=== PATIENT | female | born 1955 | race Hispanic/Latino ===

== ENCOUNTER 2018-08-21 15:59 | Inpatient (IN) | payer MEDICAID ==
[2018-08-21] MEDS ORDERED: ACTIVASE ONE (16:21)
--- NOTE | 2018-08-21 16:24 | Cat Scan Report ---
PROCEDURE: CT HEAD/BRAIN WO CON TECHNIQUE: Computerized tomography of the head was performed without contrast material. HISTORY: neuro deficits <6hrs or sx present upon awakening COMPARISONS: None . FINDINGS: No CT evidence of intracranial mass, hemorrhage, or hydrocephalus. There is patchy white matter low a ttenuation, compatible with chronic microvascular ischemic change. There is focal left internal capsu le subcentimeter low attenuation which is of uncertain chronicity. No acute fracture. Visualized para nasal sinuses and mastoids are aerated. IMPRESSION: Focal left internal capsule low-attenuation is compatible with age-indeterminate ischemia. This could be subacute to chronic. Findings could be evaluated with MRI if clinically indicated. No acute hemor rhage . This document is electronically signed by Liz Ordoñez MD., August 21 2018 04:22:52 PM ET
[2018-08-21 16:28] LABS: Basophils % (Auto) 0.5 % (0.0-1.8); Eosinophils # (Auto) 0.1 K/mm3 (0.0-0.4); Eosinophils % (Auto) 2.1 % (0.0-4.3); Hematocrit 30.4 % (30.3-42.9); Hemoglobin 10.1 gm/dl (10.1-14.3); Lymphocytes # (Auto) 3.1 K/mm3 (1.2-5.4); Lymphocytes % (Auto) 44.2 % (13.4-35.0); Mean Corpuscular HGB Conc 33 % (30-34); Mean Corpuscular Volume 85 fl (79-97); Monocytes # (Auto) 0.5 K/mm3 (0.0-0.8); Monocytes % (Auto) 7.3 % (0.0-7.3); Platelet Count 172 K/mm3 (140-440); Red Blood Count 3.56 M/mm3 (3.65-5.03); Red Cell Distribution Width 16.1 % (13.2-15.2)
[2018-08-21] MEDS ORDERED: NORMODYNE IV ONE (16:32)
[2018-08-21 16:39] LABS: INR 1.09 (0.87-1.13); Partial Thromboplastin Time 27.6 Sec. (24.2-36.6)
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
--- NOTE | 2018-08-21 16:42 | Consultation ---
History of Present Illness Consult date: 08/21/18 Reason for Consult: stroke alert Chief complaint: chest pain radiating down left arm and leg, sharp, stabbing, radiating through to back as well, associated with numbness down left side as well History of present illness: 63 yo female with h/o CAD and past admissions for chest pain reports that "somewhere around 2 hours ago" she had sudden chest pain to the left side that radiated all the way down her left arm and left leg- she can't move her leg and her arm hurts; she feels it goes straight through to her back as well; has had chest pain before but not like this; feels her speech is a bit slurred but also notes she has no teeth; looking in EMR- had a prolonged PT a few years ago; aspirin allergy is "throws up" but admits she tolerates baby dose 81mg okay w/o h/o anaphylaxis; BP now is 198, 199- systolic checked in both arms Medications and Allergies Allergies Allergy/AdvReac Type Severity Reaction Status Date / Time aspirin Allergy Rash Verified 10/25/14 14:28 ketorolac tromethamine Allergy Rash Verified 10/25/14 14:28 [From Toradol] morphine Allergy Rash Verified 10/25/14 14:28 Home Medications Medication Instructions Recorded Confirmed Last Taken Type HYDROcodone/APAP 5-325 [[place] 1 each PO Q6HR PRN #12 tablet 10/26/14 Unknown Rx 5/325] Physical Examination - Constitutional General appearance: uncomfortable - Neurologic Cranial nerve examination: other (NIHSS = 4 1A: Level of Consciousness - Alert; keenly responsive) - Additional Exam Additional Exam: 1A: Level of Consciousness - Alert; keenly responsive 1B: Ask Month and Age - Both Questions Right 1C: 'Blink Eyes' & 'Squeeze Hands' - Performs Both Tasks 2: Test Horizontal Extraocular Movements - Normal 3: Test Visual [place] - No Visual Loss 4: Test Facial Palsy - Normal symmetry 5A: Test Left Arm Motor Drift - Drift, but doesn't hit bed 5B: Test Right Arm Motor Drift - No Drift for 10 Seconds 6A: Test Left Leg Motor Drift - Drift, hits bed 6B: Test Right Leg Motor Drift - No Drift for 5 Seconds 7: Test Limb Ataxia - No Ataxia 8: Test Sensation - Mild-Moderate Loss: Less Sharp/More Dull 9: Test Language/Aphasia - Normal; No aphasia 10: Test Dysarthria - Normal 11: Test Extinction/Inattention - No abnormality NIHSS = 4 of note she moves her left arm very well, strong with good finger extension noted while nurse was placing IV in right AC, she is talking with mild slurring but appears more due to being edentulous; She is also noted to move her left leg spontaneously but then when asked does not give much effort to move it Not a tPA candidate at this time due to BP and need for coags; also need to r/o aortic dissection given constellation of sx; going for CTA chest; CT head pending; uanble to get CTA chest AND head/neck here per ED doc; does not look like LVO to me clinically UPDATE: CTA chest negative update on exam- left arm is full strength, has been seen moving left leg as well but not moving much when asked (is moving some); states that her chest pain is really bothering her, trop elevated- at this time I do not feel comfortable nor do I think she is a good candidate for tPA; she was not clear at all on when her symptoms started and could not give me a definite time, her exam has fluctuated and I observed her to fully move left arm spontaneously while talking in conversation and right arm was being used for labs as well as spontaneously move left leg; I do not feel the risks of giving her tPA outweigh the benefit and I discussed this in detail with ED physician Dr. Oh who agrees. I would recommend neurology consult inpatient and consideration of MRI given she does have hypodensity in LEFT hemisphere on CT scan that is of indeterminate age and she has many RF for stroke. d/w patient in detail. Metrics: LKN (unclear- patient reports sometime this morning and cannot give me a good time- she told ED doc around 1 hour ago and told me around "somewhere around 2 hours or so") Door:[id number] connected: 1603 [id number] Please call with further questions Aurora El MD [employer] Results - Laboratory Findings CBC and BMP: 08/21/18 16:23 08/21/18 16:23 Abnormal Lab Findings: Abnormal Labs 08/21/18 16:23 RBC 3.56 L RDW 16.1 H Lymph % (Auto) 44.2 H
[2018-08-21] MEDS ORDERED: MORPHINE IV ONE (16:46)
[2018-08-21] MEDS ORDERED: ZOFRAN IV ONE (16:46)
[2018-08-21] MEDS ORDERED: MORPHINE ONE (16:49)
[2018-08-21] MEDS ORDERED: ZOFRAN ONE (16:50)
[2018-08-21 17:01] LABS: Calcium 8.7 mg/dL (8.4-10.2)
[2018-08-21 17:23] LABS: Chol/HDL Ratio 4.46 %
--- NOTE | 2018-08-21 17:34 | Cat Scan Report ---
PROCEDURE: CT angiogram chest with contrast. TECHNIQUE: Computerized tomographic angiography of the chest was performed after the IV injection of iodinated nonionic contrast including image processing. The image data was postprocessed using 2-di mensional multiplanar reformatted (MPR) and 3-dimensional (MIP and/or volume rendered) techniques. Au tomated exposure control, adjustment of mA and/or kV according to patient size, or iterative reconstr uction dose optimization techniques were utilized. CT DOSE LENGTH PRODUCT: 605.67 mGycm HISTORY: Chest pain. COMPARISONS: CT angiogram chest 12/12/2013. Dictation not available. FINDINGS: The trachea and central bronchi appear normal. There is minimal subsegmental atelectasis in both lowe r lobes. The lungs are otherwise clear. There are no signs of pneumonia. The thoracic aorta has a nor mal caliber without evidence of dissection. The pulmonary arteries enhance normally. There is no evid ence of pulmonary embolism. There is no mediastinal adenopathy. The heart size is normal. The thoraci c skeleton appears intact. Median sternotomy wires are present. There is an internal fixation malika in the left humerus. IMPRESSION: No significant abnormality identified. This document is electronically signed by Jarod Dewitt MD., August 21 2018 05:32:10 PM ET
[2018-08-21] MEDS ORDERED: NITROSTAT SL PRN (18:17)
[2018-08-21] MEDS ORDERED: BABY ASPIRIN PO ONE (18:30)
--- NOTE | 2018-08-21 18:39 | History and Physical Report ---
History of Present Illness Chief complaint: My chest hurts, and I felt weak History of present illness: 63 YO Female with HTN, CAD, CVA, PR, DM complicated by Neuropathy, CHF, Seizure Disorder presents to ED for evaluation. Pt states that she was in her usual state of health and was driving her car when she experienced and acute onset of pain in her chest. Pt sates that pain was 7/10, localized to the left chest, sh enrrique, crushing in nature, radiates to the back, associated with shortness of breath and diaphoresis. Pt stopped her vehicle and dialed 911 on her mobile phone. EMS notified, and uopn arrival the patient was removed from her vehicle and found to be in distress. Pt transported to [facility]. En route to [facility] the patient developed slurred speech, left arm weakness, left leg weakness. A code stroke was called. Pt seen and evaluated in ED and found to have synptoms consistent with CVA as well as NSTEMI, Acute Renal Failure, Acidosis, and Hypertensive Urgency. Pt admitted to telemetry and initiated on heparin drip protocol after CT head was negative for ICH. Pt admission on 10/22/14 reviewed. All listed me dication reconciled at time of admission. Past History Past Medical History: acute PR, CAD, diabetes, heart failure, hypertension, seizures Past Surgical History: appendectomy, cholecystectomy, CABG, hysterectomy, hernia repair Social history: single. denies: smoking, alcohol abuse, prescription drug abuse Family history: diabetes, hypertension Medications and Allergies Allergies Allergy/AdvReac Type Severity Reaction Status Date / Time aspirin Allergy Rash Verified 10/25/14 14:28 ketorolac tromethamine Allergy Rash Verified 10/25/14 14:28 [From Toradol] morphine Allergy Rash Verified 10/25/14 14:28 Home Medications Medication Instructions Recorded Confirmed Last Taken Type HYDROcodone/APAP 5-325 [[place] 1 each PO Q6HR PRN #12 tablet 10/26/14 Unknown Rx 5/325] Active Meds: Active Medications Nitroglycerin (Nitrostat) 0.4 mg SL .Q5MIN PRN PRN Reason: Chest Pain Review of Systems Constitutional: no weight loss, no fever, no chills Ears, nose, mouth and throat: no ear pain, no ear discharge, no tinnitis, no decreased hearing, no nose pain, no nasal congestion Breasts: no change in shape, no swelling, no mass Cardiovascular: chest pain, shortness of breath Respiratory: no cough, no cough with sputum, no excessive sputum, no hemoptysis Gastrointestinal: no nausea, no vomiting, no diarrhea Genitourinary Female: no pelvic pain, no flank pain, no menorrhagia, no dysuria, no urinary frequency, no urgency Rectal: no pain, no incontinence, no bleeding Integumentary: no rash, no pruritis, no redness, no sores, no wounds Neurological: no paralysis, no weakness, no parathesias, no numbness, no tingling, no seizures Psychiatric: no anxiety, no memory loss, no change in sleep habits, no sleep disturbances, no insomnia, no hypersomnia Endocrine: no cold intolerance, no heat intolerance, no polyphagia, no excessive thirst, no polydipsia, no nocturia Hematologic/Lymphatic: no easy bruising, no easy bleeding, no lymphadenopathy Allergic/Immunologic: no urticaria, no allergic rhinitis, no wheezing, no persistent infections, no anaphylaxis, no angioedema Exam - Constitutional Vitals: Temp Pulse Resp BP Pulse Ox 82 16 195/94 99 08/21/18 16:59 08/21/18 16:59 08/21/18 16:59 08/21/18 16:59 General appearance: Present: mild distress - EENT Eyes: Present: PERRL ENT: hearing intact, clear oral mucosa - Neck Neck: Present: supple, normal ROM - Respiratory Respiratory effort: normal Respiratory: bilateral: CTA - Cardiovascular Heart Sounds: Present: S1 & S2. Absent: rub, click - Extremities Extremities: pulses symmetrical, No edema Peripheral Pulses: within normal limits - Abdominal General gastrointestinal: Present: soft, non-tender, non-distended, normal bowel sounds Female genitourinary: Present: normal - Integumentary Integumentary: Present: clear, warm, dry - Musculoskeletal Musculoskeletal: generalized weakness - Psychiatric Psychiatric: appropriate mood/affect, intact judgment & insight - Neurologic Neurologic: CNII-XII intact, moves all extremities, no gait normal Results - Labs CBC & Chem 7: 08/21/18 16:23 08/21/18 16:23 Labs: Abnormal lab results 08/21/18 08/21/18 Range/Units 16:23 16:23 RBC 3.56 L (3.65-5.03) M/mm3 RDW 16.1 H (13.2-15.2) % Lymph % (Auto) 44.2 H (13.4-35.0) % Chloride 108.1 H (98-107) mmol/L Carbon Dioxide 18 L (22-30) mmol/L BUN 39 H (7-17) mg/dL Creatinine 2.4 H (0.7-1.2) mg/dL Glucose 221 H (65-100) mg/dL Troponin T 0.034 H (0.00-0.029) ng/mL Triglycerides 258 H (2-149) mg/dL Assessment and Plan - Patient Problems (1) CVA (cerebral vascular accident) Current Visit: Yes Status: Acute Qualifiers: Precerebral and cerebral artery: middle cerebral artery Laterality of affected vessel: left Plan to address problem: Admit to telemetry: Stroke protocol; Teleneurology consulted, CT head, MRI Brain, MRA Brain, Echo, Carotid doppler, Lipid panel, antiplatelet therapy, permissive hypertension overnight. Goal systolic between 160-180, monitor bp q shift, PT/OT/Speech Therapy, Neuro checks (2) NSTEMI (non-ST elevated myocardial infarction) Current Visit: Yes Status: Acute Plan to address problem: Cardiology consulted in ED, serial cardiac enzymes, EKg, heparin drip initiated in ED, morphine, supplemental oxygen, nitro, aspirin, stress test, (3) Acidosis Current Visit: Yes Status: Acute Plan to address problem: repeat bmp, IVF resuscitation therapy as tolerated, (4) ARF (acute renal failure) with tubular necrosis Current Visit: Yes Status: Acute Plan to address problem: Nephrology consulted, IVF resuscitation, hepatitis profile, renal ultrasound, urine electrolytes, monitor uop q shift, avoid nephrotoxic agents. (5) Diabetes Current Visit: Yes Status: Acute Plan to address problem: ADA diet, insulin, accu check, HGB A1c, (6) Seizure disorder Current Visit: Yes Status: Acute Plan to address problem: No medication listed, Seizure precautions, neuro checks. (7) CAD (coronary artery disease) Current Visit: Yes Status: Acute Qualifiers: [place] vs. transplanted heart: [place] heart Associated angina: with stable angina Plan to address problem: Lipid panel, statin therapy, low cholesterol diet, risk factor reduction, balanced diet, increased physical activity at discharge. (8) CHF (congestive heart failure) Current Visit: Yes Status: Acute Qualifiers: Heart failure type: diastolic Heart failure chronicity: acute on chronic Qualified Code(s): I50.33 - Acute on chronic diastolic (congestive) heart failure Plan to address problem: Admit to telemetry, cardiology consulted, BNP, Ddimer, chest x ray, strict I/O, daily weight, afterload reduction, blood pressure control, monitor uop q shift, (9) Hypertensive emergency Current Visit: Yes Status: Acute Plan to address problem: monitor bp q shift, IV hydralazine prn, (10) DVT prophylaxis Current Visit: Yes Status: Acute Plan to address problem: SCD to BLE while in bed,
[2018-08-21] MEDS ORDERED: SODIUM CHLORIDE FLUSH SYRINGE 10 ML IV PRN ×2 (18:42→18:49)
[2018-08-21] MEDS ORDERED: TYLENOL PO PRN (18:42)
[2018-08-21] MEDS ORDERED: ZOFRAN IV PRN (18:42)
[2018-08-21] MEDS ORDERED: REGLAN PO PRN (18:42)
[2018-08-21] MEDS ORDERED: PHENERGAN PR PRN (18:42)
[2018-08-21] MEDS ORDERED: DULCOLAX PR PRN (18:42)
[2018-08-21] MEDS ORDERED: MILK OF MAGNESIA PO PRN (18:42)
[2018-08-21] MEDS ORDERED: APRESOLINE IV PRN (18:54)
[2018-08-21] MEDS ORDERED: D50W (25GM) Syringe IV PRN (18:58)
[2018-08-21] MEDS ORDERED: DILAUDID ONE (20:02)
[2018-08-21] MEDS: DILAUDID IV PRN (20:03)
[2018-08-21 20:51] LABS: Hepatitis B Surface Antigen Non-Reactive (Negative); Hepatitis C Virus Antibody Reactive (NonReactive)
[2018-08-21 22:02] LABS: INR 1.1 (0.87-1.13)
[2018-08-21] MEDS: HEPARIN/ 0.45% NACL-25,000 UNIT/500 ML 25,000 UNIT/500 ML BAG IV SCH (22:02)
[2018-08-21 22:03] LABS: Partial Thromboplastin Time 27.3 Sec. (24.2-36.6)
[2018-08-21] MEDS: NORCO 5/325 PO PRN (22:09)
[2018-08-21 23:33] LABS: Hematocrit 30.8 % (30.3-42.9); Hemoglobin 10.2 gm/dl (10.1-14.3)
[2018-08-21] MEDS: AMBIEN PO PRN (23:43)
[2018-08-21] MEDS: MUCOMYST ORAL PO SCH (23:43)
[2018-08-22 00:18] LABS: Creatinine,Urine 46.5 mg/dL (0.1-20.0)
--- NOTE | 2018-08-22 09:41 | Progress Note ---
Assessment and Plan Assessment and plan: Acute CVA with left-sided weakness. CT scan reveals focal left internal capsule with age indeterminate ischemia.? Subacute versus chronic. Follow-up MRI/MRA, echocardiogram and carotid Dopplers. Patient with previous history of CVA. Chest pain. Patient does have elevated troponin and history of coronary artery disease. Continue heparin drip. Cardiology consult. Follow-up stress test. CAD. As above. History of CABG done at [facility] in 2014. Stress test in 2015 completed here reported as normal Diabetes mellitus type 2. Continue Accu-Cheks and sliding scale insulin. Hypertension. Continue current antihypertensive medications. Seizure disorder. Seizure precautions. AEDs. History Interval history: No new issues overnight. Hospitalist Physical - Constitutional Vitals: Temp Pulse Resp BP Pulse Ox 98.0 F 75 18 140/52 98 08/22/18 04:46 08/22/18 05:00 08/22/18 04:46 08/22/18 04:46 08/22/18 04:46 General appearance: Present: mild distress - EENT Eyes: Present: PERRL, EOM intact ENT: hearing intact, clear oral mucosa, dentition normal - Neck Neck: Present: supple, normal ROM - Respiratory Respiratory effort: normal Respiratory: bilateral: CTA - Cardiovascular Rhythm: regular Heart Sounds: Present: S1 & S2. Absent: gallop, rub - Extremities Extremities: no ischemia, No edema, Full ROM - Abdominal General gastrointestinal: soft, non-tender, non-distended, normal bowel sounds - Integumentary Integumentary: Present: clear, warm, dry - Neurologic Neurologic: CNII-XII intact, moves all extremities Results - Labs CBC & Chem 7: 08/21/18 22:35 08/21/18 16:23 Labs: Laboratory Last Values WBC 7.0 K/mm3 (4.5-11.0) 08/21/18 16:23 RBC 3.56 M/mm3 (3.65-5.03) L 08/21/18 16:23 Hgb 10.2 gm/dl (10.1-14.3) 08/21/18 22:35 Hct 30.8 % (30.3-42.9) 08/21/18 22:35 MCV 85 fl (79-97) 08/21/18 16:23 MCH 28 pg (28-32) 08/21/18 16:23 MCHC 33 % (30-34) 08/21/18 16:23 RDW 16.1 % (13.2-15.2) H 08/21/18 16:23 Plt Count 167 K/mm3 (140-440) 08/21/18 22:35 Lymph % (Auto) 44.2 % (13.4-35.0) H 08/21/18 16:23 [place] % (Auto) 7.3 % (0.0-7.3) 08/21/18 16:23 Eos % (Auto) 2.1 % (0.0-4.3) 08/21/18 16:23 Baso % (Auto) 0.5 % (0.0-1.8) 08/21/18 16:23 Lymph # 3.1 K/mm3 (1.2-5.4) 08/21/18 16:23 [place] # 0.5 K/mm3 (0.0-0.8) 08/21/18 16:23 Eos # 0.1 K/mm3 (0.0-0.4) 08/21/18 16:23 Baso # 0.0 K/mm3 (0.0-0.1) 08/21/18 16:23 Seg Neutrophils % 45.9 % (40.0-70.0) 08/21/18 16: Seg Neutrophils # 3.2 K/mm3 (1.8-7.7) 08/21/18 16:23 PT 14.9 Sec. (12.2-14.9) 08/21/18 21:20 INR 1.10 (0.87-1.13) 08/21/18 21:20 APTT 27.3 Sec. (24.2-36.6) 08/21/18 21:20 Thrombin Time 18.0 Sec. (15.1-19.6) 08/21/18 16:23 D-Dimer 327.52 ng/mlDDU (0-234) H 08/21/18 16:23 Heparin Anti-Xa Level 0.45 U.I./ml (0.3-0.7) 08/22/18 04:30 Sodium 138 mmol/L (137-145) 08/21/18 16:23 Potassium 4.7 mmol/L (3.6-5.0) 08/21/18 16:23 Chloride 108.1 mmol/L (98-107) H 08/21/18 16:23 Carbon Dioxide 18 mmol/L (22-30) L 08/21/18 16:23 Anion Gap 17 mmol/L 08/21/18 16:23 BUN 39 mg/dL (7-17) H 08/21/18 16:23 Creatinine 2.4 mg/dL (0.7-1.2) H 08/21/18 16:23 Estimated GFR 21 ml/min 08/21/18 16:23 BUN/Creatinine Ratio 16 % 08/21/18 16:23 Glucose 221 mg/dL (65-100) H 08/21/18 16:23 POC Glucose 264 (70-105) H 08/22/18 06:16 Hemoglobin A1c 9.3 % (4-6) H 08/21/18 16:23 Calcium 8.7 mg/dL (8.4-10.2) 08/21/18 16:23 Troponin T 0.026 ng/mL (0.00-0.029) 08/22/18 01:01 NT-Pro-B Natriuret Pep 384.5 pg/mL (0-900) 08/21/18 16:23 Triglycerides 258 mg/dL (2-149) H 08/21/18 16:23 Cholesterol 192 mg/dL (50-199) 08/21/18 16:23 LDL Cholesterol Direct 121 mg/dL (50-130) 08/21/18 16:23 HDL Cholesterol 43 mg/dL (40-59) 08/21/18 16:23 Cholesterol/HDL Ratio 4.46 % 08/21/18 16:23 Urine Creatinine 46.5 mg/dL (0.1-20.0) H 08/21/18 00:00 Urine Sodium 47 mmol/L 08/21/18 00:00 Hepatitis A IgM Ab Non-reactive (NonReactive) 08/21/18 16:23 Hep Bs Antigen Non-reactive (Negative) 08/21/18 16:23 Hep B Core IgM Ab Non-reactive (NonReactive) 08/21/18 16:23 Hepatitis C Antibody Reactive (NonReactive) A 08/21/18 16:23 Active Medications - Current Medications Current Medications: Generic Name Dose Route Start Last Admin Trade Name Freq PRN Reason Stop Dose Admin Acetaminophen 650 mg 08/21/18 18:42 Tylenol PO Q4H PRN Pain, Mild (1-3) Acetaminophen/Hydrocodone Bitart 1 each 08/21/18 18:44 08/21/18 22:09 [place] 5/325 PO 1 each Q6H PRN Administration Pain Acetylcysteine 600 mg 08/21/18 22:00 08/21/18 23:43 Mucomyst Oral PO 600 mg BID JESSICA Administration Aspirin 325 mg 08/22/18 10:00 Aspirin PO QDAY JESSICA Atorvastatin Calcium 40 mg 08/21/18 22:00 08/21/18 22:02 Lipitor PO 40 mg QHS [facility] Administration Bisacodyl 10 mg 08/21/18 18:42 Dulcolax [place] QDAY PRN Constipation Dextrose 50 ml 08/21/18 18:58 D50w (25gm) Syringe IV PRN PRN Hypoglycemia Hydralazine HCl 10 mg 08/21/18 18:54 Apresoline IV Q6H PRN Hypertension Hydromorphone HCl 0.5 mg 08/21/18 19:41 08/21/18 20:03 Dilaudid IV 0.5 mg ONCE PRN Administration pain Heparin Sodium/Sodium Chloride 25,000 unit in 500 mls @ 20 mls/hr 08/21/18 21:00 08/22/18 06:39 Heparin/ 0.45% Nacl-25,000 Unit/500 Ml IV 1,000 units/hr TITRATE JESSICA 20 mls/hr Titration Protocol 1,000 UNITS/HR Insulin Human Lispro 0 unit 08/22/18 19:00 Humalog SUB-Q Q6HR [facility] Protocol Magnesium Hydroxide 30 ml 08/21/18 18:42 Milk Of Magnesia PO Q4H PRN Constipation Metoclopramide HCl 10 mg 08/21/18 18:42 Reglan PO Q6H PRN Nausea And Vomiting Nitroglycerin 0.4 mg 08/21/18 18:17 08/21/18 18:40 Nitrostat SL 0.4 mg .Q5MIN PRN Administration Chest Pain Ondansetron HCl 4 mg 08/21/18 18:42 Zofran IV Q8H PRN Nausea And Vomiting Promethazine HCl 25 mg 08/21/18 18:42 Phenergan [place] Q6H PRN Nausea And Vomiting Sodium Chloride 10 ml 08/21/18 18:42 Sodium Chloride Flush Syringe 10 Ml IV PRN PRN LINE FLUSH Sodium Chloride 10 ml 08/21/18 18:49 Sodium Chloride Flush Syringe 10 Ml IV PRN PRN LINE FLUSH Zolpidem Tartrate 5 mg 08/21/18 21:22 08/21/18 23:43 Ambien PO 5 mg QHS PRN Administration Sleep
[2018-08-22] MEDS: ASPIRIN PO SCH ×2 (09:44→11:26)
[2018-08-22] MEDS: MUCOMYST ORAL PO SCH ×2 (10:11→21:29)
--- NOTE | 2018-08-22 10:40 | Consultation ---
History of Present Illness - Reason for Consult Consult date: 08/22/18 acute renal failure - History of Present Illness The patient is a 63 yo female with history signficant for Type 2 DM, HTN, HLD, CAD s/p CABG, TIA, Peripheral neuropathy, Gout, CKD and CHF who presented to [facility] ED yesterday via EMS with chest pain. Chest pain was left sided, stabbing, cosntant, sharp and radiating to back. Associated symptoms include shortness of breath. about 5 minutes later she developed slurred speech and left arm/leg weakness. Patient was admitted with TIA and suspected ACS. Creatinine was 2.4 on admission. Received IV contrast yesterday. Nephrology was consulted for further evaluation. Past History Past Medical History: acute CT, CAD, diabetes, heart failure, hypertension, hyperlipidemia, renal failure, seizures, other (Gout) Past Surgical History: appendectomy, cholecystectomy, CABG, hysterectomy, hernia repair Social history: single. denies: smoking, alcohol abuse, prescription drug abuse Family history: diabetes, hypertension Medications and Allergies Allergies Allergy/AdvReac Type Severity Reaction Status Date / Time aspirin Allergy Rash Verified 10/25/14 14:28 ketorolac tromethamine Allergy Rash Verified 10/25/14 14:28 [From Toradol] morphine Allergy Rash Verified 10/25/14 14:28 Home Medications Medication Instructions Recorded Confirmed Last Taken Type HYDROcodone/APAP 5-325 [[place] 1 each PO Q6HR PRN #12 tablet 10/26/14 Unknown Rx 5/325] Active Meds: Active Medications Acetaminophen (Tylenol) 650 mg PO Q4H PRN PRN Reason: Pain, Mild (1-3) Acetaminophen/Hydrocodone Bitart ([place] 5/325) 1 each PO Q6H PRN PRN Reason: Pain Last Admin: 08/21/18 22:09 Dose: 1 each Documented by: Acetylcysteine (Mucomyst Oral) 600 mg PO BID [facility] Last Admin: 08/22/18 10:11 Dose: 600 mg Documented by: Aspirin (Aspirin) 325 mg PO QDAY [facility] Last Admin: 08/22/18 09:44 Dose: 325 mg Documented by: Atorvastatin Calcium (Lipitor) 40 mg PO QHS [facility] Last Admin: 08/21/18 22:02 Dose: 40 mg Documented by: Bisacodyl (Dulcolax) 10 mg ND QDAY PRN PRN Reason: Constipation Dextrose (D50w (25gm) Syringe) 50 ml IV PRN PRN PRN Reason: Hypoglycemia Hydralazine HCl (Apresoline) 10 mg IV Q6H PRN PRN Reason: Hypertension Hydromorphone HCl (Dilaudid) 0.5 mg IV ONCE PRN PRN Reason: pain Last Admin: 08/21/18 20:03 Dose: 0.5 mg Documented by: Heparin Sodium/Sodium Chloride (Heparin/ 0.45% Nacl-25,000 Unit/500 Ml) 25,000 unit in 500 mls @ 20 mls/hr IV TITRATE JESSICA; Protocol Last Titration: 08/22/18 06:39 Dose: 1,000 units/hr, 20 mls/hr Documented by: Insulin Human Lispro (Humalog) 0 unit SUB-Q Q6HR [facility]; Protocol Magnesium Hydroxide (Milk Of Magnesia) 30 ml PO Q4H PRN PRN Reason: Constipation Metoclopramide HCl (Reglan) 10 mg PO Q6H PRN PRN Reason: Nausea And Vomiting Nitroglycerin (Nitrostat) 0.4 mg SL .Q5MIN PRN PRN Reason: Chest Pain Last Admin: 08/21/18 18:40 Dose: 0.4 mg Documented by: Ondansetron HCl (Zofran) 4 mg IV Q8H PRN PRN Reason: Nausea And Vomiting Promethazine HCl (Phenergan) 25 mg ND Q6H PRN PRN Reason: Nausea And Vomiting Sodium Chloride (Sodium Chloride Flush Syringe 10 Ml) 10 ml IV PRN PRN PRN Reason: LINE FLUSH Sodium Chloride (Sodium Chloride Flush Syringe 10 Ml) 10 ml IV PRN PRN PRN Reason: LINE FLUSH Zolpidem Tartrate (Ambien) 5 mg PO QHS PRN PRN Reason: Sleep Last Admin: 08/21/18 23:43 Dose: 5 mg Documented by: Review of Systems Constitutional: no weight loss, no weight gain, no fever, no chills, no weakness Breasts: deferred Cardiovascular: chest pain, shortness of breath, dyspnea on exertion, high blood pressure, no orthopnea, no palpitations, no edema, no syncope, no lightheadedness, no leg edema Respiratory: shortness of breath, no cough, no hemoptysis Gastrointestinal: abdominal pain, no nausea, no vomiting, no diarrhea, no hematemesis Genitourinary Female: no dysuria, no hematuria Rectal: no bleeding Musculoskeletal: no low back pain, no muscle weakness, no muscle cramps Integumentary: no sores, no wounds, no jaundice Neurological: no aphasia, no change in speech, no change in mentation, no confusion, no memory loss, no double vision, no loss of vision Exam - Vital Signs Vital signs: Vital Signs Pulse BP 82 190/76 08/21/18 16:33 08/21/18 16:33 - General Appearance General appearance: well-developed, well-nourished, appears stated age, other (not in distress) EENT: ATNC, PERRL, hearing intact, vision intact Neck: Present: neck supple, trachea midline Respiratory: Clear to Ascultation Heart: regular, S1S2, no murmurs Gastrointestinal: Present: normoactive bowel sounds. Absent: tenderness, distended Integumentary: no rash, warm and dry Neurologic: no asterixis, alert and oriented x3, other (able to move all 4 extremities) Musculoskeletal: Present: other (no edema) Psychiatric: cooperative Results - Lab Results 08/21/18 22:35 08/22/18 11:32 Most recent lab results Calcium 8.7 mg/dL (8.4-10.2) 08/21/18 16:23 Urine Creatinine 46.5 mg/dL (0.1-20.0) H 08/21/18 00:00 Urine Sodium 47 mmol/L 08/21/18 00:00 - Image Kidney/bladder ultrasound: pending Assessment and Plan 1. 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 Recent lab results are available at this time. Urine studies ordered. Renal US pending. Monitor renal function. Avoid nephrotoxic agents. Meds dosage based on GFR. 2. FEN: Monitor lytes. 3. Suspected acute CVA. 4. Chest pain: Followed by Cards. 5. Type DM. 6. HTN.
--- NOTE | 2018-08-22 11:52 | Consultation ---
History of Present Illness Consult date: 08/22/18 Consult reason: chest pain History of present illness: 63-year-old white female who presented with left sided chest pains at rest. [place] he weak and tired. She was admitted for further evaluation and cardiac consultation obtained. 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 denies: smoking, alcohol abuse, prescription drug abuse Family history: diabetes, hypertension Medications and Allergies Allergies Allergy/AdvReac Type Severity Reaction Status Date / Time aspirin Allergy Rash Verified 10/25/14 14:28 ketorolac tromethamine Allergy Rash Verified 10/25/14 14:28 [From Toradol] morphine Allergy Rash Verified 10/25/14 14:28 Home Medications Medication Instructions Recorded Confirmed Last Taken Type HYDROcodone/APAP 5-325 [[place] 1 each PO Q6HR PRN #12 tablet 10/26/14 Unknown Rx 5/325] Active Meds: Active Medications Acetaminophen (Tylenol) 650 mg PO Q4H PRN PRN Reason: Pain, Mild (1-3) Acetaminophen/Hydrocodone Bitart ([place] 5/325) 1 each PO Q6H PRN PRN Reason: Pain Last Admin: 08/21/18 22:09 Dose: 1 each Documented by: Acetylcysteine (Mucomyst Oral) 600 mg PO BID [facility] Last Admin: 08/22/18 10:11 Dose: 600 mg Documented by: Aspirin (Aspirin) 325 mg PO QDAY [facility] Last Admin: 08/22/18 11:26 Dose: Not Given Documented by: Atorvastatin Calcium (Lipitor) 40 mg PO QHS [facility] Last Admin: 08/21/18 22:02 Dose: 40 mg Documented by: Bisacodyl (Dulcolax) 10 mg [place] QDAY PRN PRN Reason: Constipation Dextrose (D50w (25gm) Syringe) 50 ml IV PRN PRN PRN Reason: Hypoglycemia Hydralazine HCl (Apresoline) 10 mg IV Q6H PRN PRN Reason: Hypertension Hydromorphone HCl (Dilaudid) 0.5 mg IV ONCE PRN PRN Reason: pain Last Admin: 08/21/18 20:03 Dose: 0.5 mg Documented by: Heparin Sodium/Sodium Chloride (Heparin/ 0.45% Nacl-25,000 Unit/500 Ml) 25,000 unit in 500 mls @ 20 mls/hr IV TITRATE JESSICA; Protocol Last Titration: 08/22/18 06:39 Dose: 1,000 units/hr, 20 mls/hr Documented by: Insulin Human Lispro (Humalog) 0 unit SUB-Q Q6HR JESSICA; Protocol Magnesium Hydroxide (Milk Of Magnesia) 30 ml PO Q4H PRN PRN Reason: Constipation Metoclopramide HCl (Reglan) 10 mg PO Q6H PRN PRN Reason: Nausea And Vomiting Nitroglycerin (Nitrostat) 0.4 mg SL .Q5MIN PRN PRN Reason: Chest Pain Last Admin: 08/21/18 18:40 Dose: 0.4 mg Documented by: Ondansetron HCl (Zofran) 4 mg IV Q8H PRN PRN Reason: Nausea And Vomiting Promethazine HCl (Phenergan) 25 mg DE Q6H PRN PRN Reason: Nausea And Vomiting Sodium Chloride (Sodium Chloride Flush Syringe 10 Ml) 10 ml IV PRN PRN PRN Reason: LINE FLUSH Sodium Chloride (Sodium Chloride Flush Syringe 10 Ml) 10 ml IV PRN PRN PRN Reason: LINE FLUSH Zolpidem Tartrate (Ambien) 5 mg PO QHS PRN PRN Reason: Sleep Last Admin: 08/21/18 23:43 Dose: 5 mg Documented by: Physical Examination Vital Signs Pulse BP 82 190/76 08/21/18 16:33 08/21/18 16:33 General appearance: no acute distress HEENT: Positive: PERRL, Normocephaly, Mucus Membranes Moist Neck: Positive: neck supple, trachea midline. Negative: JVD/HJR Cardiac: Positive: Regular Rate, S1/S2, PMI, Laterally Displaced. Negative: S3, S4 Lungs: Positive: clear to auscultation, No Wheeze, Rales, Rhonchi Neuro: Positive: Grossly Intact Abdomen: Positive: Unremarkable, Active Bowel Sounds Extremities: Absent: edema Results 08/21/18 22:35 08/21/18 16:23 Coagulation 08/21/18 08/21/18 Range/Units 16:23 21:20 PT 14.8 14.9 (12.2-14.9) Sec. INR 1.09 1.10 (0.87-1.13) APTT 27.6 27.3 (24.2-36.6) Sec. Lipids 08/21/18 Range/Units 16:23 Triglycerides 258 H (2-149) mg/dL Cholesterol 192 (50-199) mg/dL HDL Cholesterol 43 (40-59) mg/dL Cholesterol/HDL Ratio 4.46 % CBC 08/21/18 08/21/18 Range/Units 16:23 22:35 WBC 7.0 (4.5-11.0) K/mm3 RBC 3.56 L (3.65-5.03) M/mm3 Hgb 10.1 10.2 (10.1-14.3) gm/dl Hct 30.4 30.8 (30.3-42.9) % Plt Count 172 167 (140-440) K/mm3 Lymph # 3.1 (1.2-5.4) K/mm3 [place] # 0.5 (0.0-0.8) K/mm3 Eos # 0.1 (0.0-0.4) K/mm3 Baso # 0.0 (0.0-0.1) K/mm3 Comprehensive Metabolic Panel 08/21/18 Range/Units 16:23 Sodium 138 (137-145) mmol/L Potassium 4.7 (3.6-5.0) mmol/L Chloride 108.1 H (98-107) mmol/L Carbon Dioxide 18 L (22-30) mmol/L BUN 39 H (7-17) mg/dL Creatinine 2.4 H (0.7-1.2) mg/dL Glucose 221 H (65-100) mg/dL Calcium 8.7 (8.4-10.2) mg/dL EKG interpretations - Telemetry EKG Rhythm: Sinus Rhythm - EKG Sinus rhythms and dysrhythmias: sinus rhythm Repolarization changes or abnormalities: nonspecific abnormality, ST segment, and/or T wave Assessment and Plan 1. Chest clear to rule out ischemic coronary artery disease 2. Coronary artery disease status post CABG 3. Essential hypertension 4. Type 2 diabetes mellitus 5. Chronic kidney disease stage III 6. Seizure disorder 7. Hyperlipidemia Plan EKG shows a sinus rhythm with no acute sinus rhythm with normal electrical axis no ischemic EKG changes. Serial cardiac isoenzymes so far negative. 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 Ida MPI
[2018-08-22] MEDS: HumaLOG SUB-Q SCH ×4 (12:34→23:54)
[2018-08-22 12:54] LABS: Alanine Aminotransferase 6 units/L (7-56); BUN/Creatinine Ratio 14; Blood Urea Nitrogen 36 mg/dL (7-17); Calcium 8.4 mg/dL (8.4-10.2); Hemolysis Index 5
--- NOTE | 2018-08-22 14:42 | Vascular Lab Report ---
PROCEDURE: VL CAROTID DUPLEX BILAT HISTORY: stroke FINDINGS: Real-time ultrasound of the cervical arterial vasculature was performed using grayscale and color Dop pler images. On the right, peak systolic velocity in the common carotid artery was 110 cm/s. In the internal carot id it was 110 cm/s and in the external carotid 104 cm/s. Flow in the vertebral artery was antegrade a t 74 cm/s. The ratio of flow of the internal carotid to the common carotid was 1.0 which is within no rmal limits. There is plaque in the proximal internal carotid artery resulting in a short segment est imated 30% stenosis On the left, peak systolic velocity in the common carotid artery was 118 cm/s. In the internal caroti d it was 111 cm/s and in the external carotid 103 cm/s. Flow in the vertebral artery was antegrade at 57 cm/s. There is plaque in the proximal internal carotid artery resulting in a short segment estima mehnaz 20% stenosis IMPRESSION: No stenosis of greater than 50% is seen in the cervical arterial vasculature. This document is electronically signed by Uzair Lynn MD., August 22 2018 02:40:53 PM ET
[2018-08-22] MEDS ORDERED: MORPHINE IV ONE (14:57)
--- NOTE | 2018-08-22 15:21 | Progress Note ---
Subjective Date of service: 08/22/18 Interval history: SEE THE DICTATED NOTE ON THIS PATIENT BY HX ONSET OF LEFT SIDED WEAKNESS ARM AND LEG ... BY HX THE LEG MORE SEVERELY EFFECTED... PRIOR HX OF [address] OF BRAIN SHOWS SEVERAL WHITE MATTER INFARCTS OF DEEP WHITE MATTER FROM SMALL VESSEL DISESASE... CREATININE IS ELEVATED PLAN CHECK echo AND GET MRI thanks Objective - Vital Sign Vital Signs - 12hr 08/22/18 08/22/18 08/22/18 04:46 05:00 08:34 Temperature 98.0 F Pulse Rate 76 75 81 Respiratory 18 18 Rate Blood Pressure 140/52 151/61 Blood Pressure [Left] O2 Sat by Pulse 98 97 Oximetry 08/22/18 08/22/18 08/22/18 09:54 12:01 12:04 Temperature 97.7 F 97.7 F Pulse Rate 81 79 Respiratory 18 Rate Blood Pressure Blood Pressure 175/64 [Left] O2 Sat by Pulse 97 Oximetry - Laboratory Findings CBC and BMP: 08/21/18 22:35 08/22/18 11:32 Abnormal Lab Findings: Abnormal Labs 08/21/18 08/21/18 08/21/18 00:00 16:23 16:23 RBC 3.56 L RDW 16.1 H Lymph % (Auto) 44.2 H D-Dimer Chloride 108.1 H Carbon Dioxide 18 L BUN 39 H Creatinine 2.4 H Glucose 221 H POC Glucose Hemoglobin A1c ALT Troponin T 0.034 H Total Protein Albumin Triglycerides 258 H Urine Creatinine 46.5 H Hepatitis C Antibody 08/21/18 08/21/18 08/21/18 16:23 16:23 16:23 RBC RDW Lymph % (Auto) D-Dimer 327.52 H Chloride Carbon Dioxide BUN Creatinine Glucose POC Glucose Hemoglobin A1c 9.3 H ALT Troponin T Total Protein Albumin Triglycerides Urine Creatinine Hepatitis C Antibody Reactive A 08/21/18 08/21/18 08/22/18 18:59 23:42 06:16 RBC RDW Lymph % (Auto) D-Dimer Chloride Carbon Dioxide BUN Creatinine Glucose POC Glucose 176 H 276 H 264 H Hemoglobin A1c ALT Troponin T Total Protein Albumin Triglycerides Urine Creatinine Hepatitis C Antibody 08/22/18 08/22/18 11:32 12:03 RBC RDW Lymph % (Auto) D-Dimer Chloride 108.9 H Carbon Dioxide 18 L BUN 36 H Creatinine 2.5 H Glucose 297 H POC Glucose 291 H Hemoglobin A1c ALT 6 L Troponin T Total Protein 5.7 L Albumin 3.0 L Triglycerides Urine Creatinine Hepatitis C Antibody
[2018-08-22 17:01] LABS: Bilirubin,Urine NEG (Negative); Blood,Urine NEG (Negative); Color,Urine Straw (Yellow); Urobilinogen,Urine < 2.0 mg/dL (<2.0)
[2018-08-22 17:11] LABS: Creatinine,Urine 70.2 mg/dL (0.1-20.0)
[2018-08-22 17:29] LABS: Protein/Creatinine Ratio,Urine 3.97
--- NOTE | 2018-08-22 17:52 | Consultation ---
HISTORY OF PRESENT ILLNESS: This is a 63-year-old female that is admitted to [facility] with severe pain in her chest and then the onset suddenly of a severe chest pain. The patient has a prior history of having 3 prior strokes. By her history was weak on her left side from the prior strokes, but also had in addition a surgical issue with her right ankle where she had metal placed in her right ankle because of MRSA infection. She denies history of TIAs. Subsequent to her prior strokes, she has memory loss and cannot remember the exact details of what occurred. In the interval, I have reviewed her CT scan of the brain, which was done in the Emergency Room on admission and the CT scan shows a rather marked amount of white matter changes in the deep white matter of the left cerebral hemisphere in the external capsule and a lacunar infarct in the caudate nucleus as well as old infarct in the deep white matter of the right cerebral hemisphere, which is chronic as well as a very slight degree of subcortical ischemia in the extreme capsule of the right hemisphere and also some ischemic changes in the posterior limb of the internal capsule adjacent to the left cerebral peduncle. These are chronic in appearance and nothing acute is noted. Specifically, do not note any areas of bleed or changes in the right hemisphere that are equivalent to her problem. MRI scan at this point is pending. In the interval, I have also reviewed her carotid artery ultrasound, which does not show any stenotic lesions. LABORATORY RESULTS: Reveal her glucose is 264 and her creatinine is 2.5. On examination, she is alert, appropriate, crying somewhat at times, complaining of pain in her right leg seems to be in some mild degree of distress related to the pain. She does not have any focal paresis. She moves her left and right arm normally. Cranial nerves are intact. I did not attempt to walk the patient given her recent cardiac history. Motor tone is symmetrical. Visual blair are full. No tremors, no asterixis. No focal motor tone abnormalities are present. IMPRESSION: By history acute stroke of the right hemisphere. She states that the stroke came on when she was riding in the ambulance. I have reviewed all of her Emergency Room note, she unfortunately has many underlying risk factors including hypertension, diabetes and renal insufficiency with a creatinine of 3.5. I have noted her coagulation profile is unremarkable. I would recommend getting an EEG. Echocardiogram is being pursued and MRI scan will be recommended. I will follow the patient with you. JOB# [id number] SILVINA/MICHAEL
[2018-08-22] MEDS: NORCO 5/325 PO PRN (19:51)
[2018-08-22] MEDS: HEPARIN/ 0.45% NACL-25,000 UNIT/500 ML 25,000 UNIT/500 ML BAG IV SCH (19:53)
[2018-08-22] MEDS: AMBIEN PO PRN (21:28)
--- NOTE | 2018-08-22 22:01 | Ultrasound Report ---
PROCEDURE: US RENAL BILAT TECHNIQUE: Ultrasound kidneys HISTORY: renal failure COMPARISONS: FINDINGS: Right kidney measures 11.4 x 5.4 x 5.2 cm. Cortical thickness 1.4 cm. The upper pole there is a echog enic focus with partially echogenic and partially hypoechoic appearance measuring 2.0 x 1.6 x 2.5 cm. The left kidney is 10.9 x 5.2 x 4.3 cm. At the upper pole there is cortical hypoechoic focus 1.5 cm m ost consistent with a cyst Mild prominence of the renal collecting systems bilaterally IMPRESSION: Mild prominence of the renal collecting systems Complex appearing lesion within the right kidney. This should be further characterized. Suggest follo w-up CT with renal protocol. This document is electronically signed by Shekhar Larose MD., August 22 2018 10:00:09 PM ET
[2018-08-23] MEDS: NORCO 5/325 PO PRN (01:29)
[2018-08-23 06:02] LABS: Hemoglobin 9.1 gm/dl (10.1-14.3)
[2018-08-23 06:18] LABS: Calcium 8.7 mg/dL (8.4-10.2)
[2018-08-23] MEDS: HumaLOG SUB-Q SCH ×2 (06:27→14:05)
[2018-08-23] MEDS ORDERED: MAGNESIUM SULFATE 2GM/50ML 2 GM/50 ML BAG IV ONE (09:00)
[2018-08-23] MEDS: DILAUDID IV PRN ×3 (09:11→20:41)
--- NOTE | 2018-08-23 09:30 | Progress Note ---
Assessment and Plan 1. 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 Recent lab results are not available at this time. Urine studies ordered. Renal US pending. Monitor renal function. Avoid nephrotoxic agents. Meds dosage based on GFR. 2. FEN: Metabolic acidosis. Monitor lytes. 3. Suspected acute CVA. 4. Chest pain: Followed by Cards. 5. Complex right kidney lesion: CT abdomen. 6. Type DM. 7. HTN. Subjective Date of service: 08/23/18 Interval history: Patient was seen and examined at the bedside. Objective - Vital Signs Vital signs: Vital Signs - 12hr 08/22/18 08/23/18 08/23/18 23:23 01:29 04:27 Temperature 98.6 F 98.2 F Pulse Rate 92 H 82 Respiratory 16 20 16 Rate Blood Pressure 154/75 143/70 O2 Sat by Pulse 95 96 Oximetry 08/23/18 08/23/18 08/23/18 07:53 07:54 09:11 Temperature 98.3 F Pulse Rate 85 Respiratory 18 20 Rate Blood Pressure 146/65 O2 Sat by Pulse 98 Oximetry - General Appearance General appearance: well-developed, well-nourished, appears stated age, other (not in distress) EENT: ATNC, PERRL Neck: supple Respiratory: Present: Clear to Ascultation Cardiology: regular, S1S2, no murmurs Gastrointestinal: normoactive bowel sounds, no tenderness, no distended Integumentary: no rash, warm and dry Neurologic: no asterixis, alert and oriented x3, other (able to move extremities) Musculoskeletal: other (no edema) - Lab 08/23/18 04:45 08/23/18 04:45 Most recent lab results Calcium 8.7 mg/dL (8.4-10.2) 08/23/18 04:45 Phosphorus 3.20 mg/dL (2.5-4.5) 08/23/18 04:45 Magnesium 1.60 mg/dL (1.7-2.3) L 08/23/18 04:45 Urine Creatinine 70.2 mg/dL (0.1-20.0) H 08/22/18 16:41 Urine Sodium 47 mmol/L 08/21/18 00:00 Urine Total Protein 279 mg/dL (5-11.8) H 08/22/18 16:41 Medications & Allergies - Medications Allergies/Adverse Reactions: Allergies aspirin Allergy (Verified 10/25/14 14:28) Rash ketorolac tromethamine [From Toradol] Allergy (Verified 10/25/14 14:28) Rash morphine Allergy (Verified 10/25/14 14:28) Rash Home Medications: Home Medications Medication Instructions Recorded Confirmed Last Taken Type HYDROcodone/APAP 5-325 [[place] 1 each PO Q6HR PRN #12 tablet 10/26/14 Unknown Rx 5/325] ALPRAZolam 0.5 mg 08/23/18 Unknown History Ambien 10 mg 08/23/18 Unknown History Atorvastatin 80 mg 08/23/18 Unknown History Clopidogrel 75 mg 08/23/18 Unknown History Diclofenac EC 75 mg 08/23/18 Unknown History Gabapentin 300 mg 08/23/18 Unknown History Humalog 08/23/18 Unknown History Hydrocodone-Acetamin 5-325 mg 08/23/18 Unknown History Lantus 08/23/18 Unknown History Lyrica 75 mg 08/23/18 Unknown History Metformin HCl 1,000 mg 08/23/18 Unknown History Metoprolol Tartrate 25 mg 08/23/18 Unknown History Promethazine 25 mg 08/23/18 Unknown History Proventil Hfa 90 INHALATION 08/23/18 Unknown History Tylenol /Codeine # 3 tab 3 PRN 08/23/18 Unknown History Active Medications: Generic Name Dose Route Start Last Admin Trade Name Freq PRN Reason Stop Dose Admin Acetaminophen 650 mg 08/21/18 18:42 Tylenol PO Q4H PRN Pain, Mild (1-3) Acetaminophen/Hydrocodone Bitart 1 each 08/21/18 18:44 08/23/18 01:29 [place] 5/325 PO 1 each Q6H PRN Administration Pain Acetylcysteine 600 mg 08/21/18 22:00 08/22/18 21:29 Mucomyst Oral PO 600 mg BID JESSICA Administration Aspirin 325 mg 08/22/18 10:00 08/22/18 11:26 Aspirin PO Not Given QDAY JESSICA Atorvastatin Calcium 40 mg 08/21/18 22:00 08/22/18 21:29 Lipitor PO 40 mg QHS JESSICA Administration Bisacodyl 10 mg 08/21/18 18:42 Dulcolax [place] QDAY PRN Constipation Dextrose 50 ml 08/21/18 18:58 D50w (25gm) Syringe IV PRN PRN Hypoglycemia Hydralazine HCl 10 mg 08/21/18 18:54 Apresoline IV Q6H PRN Hypertension Hydromorphone HCl 0.5 mg 08/21/18 19:41 08/23/18 09:11 Dilaudid IV 0.5 mg ONCE PRN Administration pain Heparin Sodium/Sodium Chloride 25,000 unit in 500 mls @ 20 mls/hr 08/21/18 21:00 08/22/18 19:53 Heparin/ 0.45% Nacl-25,000 Unit/500 Ml IV 1,000 units/hr TITRATE JESSICA 20 mls/hr Administration Protocol 1,000 UNITS/HR Magnesium Sulfate 2 gm in 50 mls @ 25 mls/hr 08/23/18 09:00 Magnesium Sulfate 2gm/50ml IV 08/23/18 10:59 ONCE ONE Insulin Human Lispro 0 unit 08/22/18 12:00 08/23/18 06:27 Humalog SUB-Q Not Given Q6HR [facility] Protocol Magnesium Hydroxide 30 ml 08/21/18 18:42 Milk Of Magnesia PO Q4H PRN Constipation Metoclopramide HCl 10 mg 08/21/18 18:42 Reglan PO Q6H PRN Nausea And Vomiting Nitroglycerin 0.4 mg 08/21/18 18:17 08/21/18 18:40 Nitrostat SL 0.4 mg .Q5MIN PRN Administration Chest Pain Ondansetron HCl 4 mg 08/21/18 18:42 Zofran IV Q8H PRN Nausea And Vomiting Promethazine HCl 25 mg 08/21/18 18:42 Phenergan [place] Q6H PRN Nausea And Vomiting Sodium Chloride 10 ml 08/21/18 18:42 Sodium Chloride Flush Syringe 10 Ml IV PRN PRN LINE FLUSH Sodium Chloride 10 ml 08/21/18 18:49 Sodium Chloride Flush Syringe 10 Ml IV PRN PRN LINE FLUSH Zolpidem Tartrate 5 mg 08/21/18 21:22 08/22/18 21:28 Ambien PO 5 mg QHS PRN Administration Sleep
[2018-08-23] MEDS: ASPIRIN PO SCH (10:36)
[2018-08-23] MEDS: MUCOMYST ORAL PO SCH ×2 (10:37→22:42)
--- NOTE | 2018-08-23 10:53 | Progress Note ---
Assessment and Plan Suspected CVA CT scan reveals focal left internal capsule with age indeterminate ischemia; Subacute versus chronic. carotid doppler reports less than 50% bilateral stenosis. Chest pain no evidence of PE by CTA chest this admission normal MPI 09/2014 Acute renal failure Anemia CAD s/p 1 vessel CABG 2013 Hypertension Diabetes Mellitus Hyperlipidemia We will obtain an echocardiogram for further cardiac assessment. Subjective Date of service: 08/23/18 Interval history: Patient reports left sided weakness and is undergoing neurology evaluation for suspected CVA. Thallium stress test placed on hold. Objective Vital Signs Temp Pulse Resp BP BP Pulse Ox 08/23/18 09:41 20 08/23/18 09:11 20 08/23/18 07:54 85 18 146/65 98 08/23/18 07:53 98.3 F 08/23/18 04:27 98.2 F 82 16 143/70 96 08/23/18 01:29 20 08/22/18 23:23 98.6 F 92 H 16 154/75 95 08/22/18 21:00 80 08/22/18 19:51 20 08/22/18 19:23 98.4 F 85 12 181/83 97 08/22/18 16:54 98.2 F 08/22/18 12:04 97.7 F 79 18 175/64 97 08/22/18 12:02 79 20 175/64 97 08/22/18 12:01 97.7 F - Physical Examination General: No Apparent Distress HEENT: Positive: PERRL, Normocephaly, Mucus Membranes Moist Neck: Positive: trachea midline Cardiac: Positive: Reg Rate and Rhythm Lungs: Positive: Decreased Breath Sounds Neuro: Positive: Weakness Extremities: Absent: edema - Labs and Meds Cardiac Enzymes 08/22/18 Range/Units 11:32 AST 9 (5-40) units/L CBC 08/23/18 Range/Units 04:45 Hgb 9.1 L (10.1-14.3) gm/dl Hct 28.0 L (30.3-42.9) % Plt Count 154 (140-440) K/mm3 Comprehensive Metabolic Panel 08/22/18 08/23/18 Range/Units 11:32 04:45 Sodium 139 140 (137-145) mmol/L Potassium 4.7 4.5 (3.6-5.0) mmol/L Chloride 108.9 H 108.4 H (98-107) mmol/L Carbon Dioxide 18 L 20 L (22-30) mmol/L BUN 36 H 32 H (7-17) mg/dL Creatinine 2.5 H 2.6 H (0.7-1.2) mg/dL Glucose 297 H 226 H (65-100) mg/dL Calcium 8.4 8.7 (8.4-10.2) mg/dL AST 9 (5-40) units/L ALT 6 L (7-56) units/L Alkaline Phosphatase 108 (35-129) units/L Total Protein 5.7 L (6.3-8.2) g/dL Albumin 3.0 L (3.9-5) g/dL - EKG Sinus rhythms and dysrhythmias: sinus rhythm Repolarization changes or abnormalities: nonspecific abnormality, ST segment, and/or T wave
--- NOTE | 2018-08-23 10:54 | Progress Note ---
Assessment and Plan Assessment and plan: Acute CVA with left-sided weakness. CT scan reveals focal left internal capsule with age indeterminate ischemia.? Subacute versus chronic. Follow-up MRI/MRA, echocardiogram and carotid Dopplers. Patient with previous history of CVA. Chest pain. Patient does have elevated troponin and history of coronary artery disease. Continue heparin drip. Cardiology following. Stress test per cardiology. CAD. As above. History of CABG done at [facility] in 2014. Stress test in 2015 completed here reported as normal Diabetes mellitus type 2. Continue Accu-Cheks and sliding scale insulin. Hypertension. Continue current antihypertensive medications. Seizure disorder. Seizure precautions. AEDs. History Interval history: No new issues overnight. Hospitalist Physical - Constitutional Vitals: Temp Pulse Resp BP Pulse Ox 98.3 F 85 20 146/65 98 08/23/18 07:53 08/23/18 07:54 08/23/18 09:41 08/23/18 07:54 08/23/18 07:54 General appearance: Present: no acute distress - EENT Eyes: Present: PERRL, EOM intact ENT: hearing intact, clear oral mucosa, dentition normal - Neck Neck: Present: supple, normal ROM - Respiratory Respiratory effort: normal Respiratory: bilateral: CTA - Cardiovascular Rhythm: regular Heart Sounds: Present: S1 & S2. Absent: gallop, rub - Extremities Extremities: no ischemia, No edema, Full ROM - Abdominal General gastrointestinal: soft, non-tender, non-distended, normal bowel sounds - Integumentary Integumentary: Present: clear, warm, dry - Neurologic Neurologic: CNII-XII intact, moves all extremities Results - Labs CBC & Chem 7: 08/23/18 04:45 08/23/18 04:45 Labs: Laboratory Last Values WBC 7.0 K/mm3 (4.5-11.0) 08/21/18 16:23 RBC 3.56 M/mm3 (3.65-5.03) L 08/21/18 16:23 Hgb 9.1 gm/dl (10.1-14.3) L 08/23/18 04:45 Hct 28.0 % (30.3-42.9) L 08/23/18 04:45 MCV 85 fl (79-97) 08/21/18 16:23 MCH 28 pg (28-32) 08/21/18 16:23 MCHC 33 % (30-34) 08/21/18 16:23 RDW 16.1 % (13.2-15.2) H 08/21/18 16:23 Plt Count 154 K/mm3 (140-440) 08/23/18 04:45 Lymph % (Auto) 44.2 % (13.4-35.0) H 08/21/18 16:23 [place] % (Auto) 7.3 % (0.0-7.3) 08/21/18 16:23 Eos % (Auto) 2.1 % (0.0-4.3) 08/21/18 16:23 Baso % (Auto) 0.5 % (0.0-1.8) 08/21/18 16:23 Lymph # 3.1 K/mm3 (1.2-5.4) 08/21/18 16:23 [place] # 0.5 K/mm3 (0.0-0.8) 08/21/18 16:23 Eos # 0.1 K/mm3 (0.0-0.4) 08/21/18 16:23 Baso # 0.0 K/mm3 (0.0-0.1) 08/21/18 16:23 Seg Neutrophils % 45.9 % (40.0-70.0) 08/21/18 16: Seg Neutrophils # 3.2 K/mm3 (1.8-7.7) 08/21/18 16:23 PT 14.9 Sec. (12.2-14.9) 08/21/18 21:20 INR 1.10 (0.87-1.13) 08/21/18 21:20 APTT 27.3 Sec. (24.2-36.6) 08/21/18 21:20 Thrombin Time 18.0 Sec. (15.1-19.6) 08/21/18 16:23 D-Dimer 327.52 ng/mlDDU (0-234) H 08/21/18 16:23 Heparin Anti-Xa Level 0.59 U.I./ml (0.3-0.7) 08/22/18 11:32 Sodium 140 mmol/L (137-145) 08/23/18 04:45 Potassium 4.5 mmol/L (3.6-5.0) 08/23/18 04:45 Chloride 108.4 mmol/L (98-107) H 08/23/18 04:45 Carbon Dioxide 20 mmol/L (22-30) L 08/23/18 04:45 Anion Gap 16 mmol/L 08/23/18 04:45 BUN 32 mg/dL (7-17) H 08/23/18 04:45 Creatinine 2.6 mg/dL (0.7-1.2) H 08/23/18 04:45 Estimated GFR 19 ml/min 08/23/18 04:45 BUN/Creatinine Ratio 12 % 08/23/18 04:45 Glucose 226 mg/dL (65-100) H 08/23/18 04:45 POC Glucose 241 (70-105) H 08/23/18 05:27 Hemoglobin A1c 9.3 % (4-6) H 08/21/18 16:23 Calcium 8.7 mg/dL (8.4-10.2) 08/23/18 04:45 Phosphorus 3.20 mg/dL (2.5-4.5) 08/23/18 04:45 Magnesium 1.60 mg/dL (1.7-2.3) L 08/23/18 04:45 Total Bilirubin < 0.20 mg/dL (0.1-1.2) 08/22/18 11:32 AST 9 units/L (5-40) 08/22/18 11:32 ALT 6 units/L (7-56) L 08/22/18 11:32 Alkaline Phosphatase 108 units/L (35-129) 08/22/18 11:32 Troponin T 0.026 ng/mL (0.00-0.029) 08/22/18 01:01 NT-Pro-B Natriuret Pep 384.5 pg/mL (0-900) 08/21/18 16:23 Total Protein 5.7 g/dL (6.3-8.2) L 08/22/18 11:32 Albumin 3.0 g/dL (3.9-5) L 08/22/18 11:32 Albumin/Globulin Ratio 1.1 % 08/22/18 11:32 Triglycerides 258 mg/dL (2-149) H 08/21/18 16:23 Cholesterol 192 mg/dL (50-199) 08/21/18 16:23 LDL Cholesterol Direct 121 mg/dL (50-130) 08/21/18 16:23 HDL Cholesterol 43 mg/dL (40-59) 08/21/18 16:23 Cholesterol/HDL Ratio 4.46 % 08/21/18 16:23 PTH Intact 128.0 pg/mL (15-65) H 08/23/18 04:45 Urine Color Straw (Yellow) 08/22/18 14:16 Urine Turbidity Clear (Clear) 08/22/18 14:16 Urine pH 6.0 (5.0-7.0) 08/22/18 14:16 Ur Specific [place] 1.029 (1.003-1.030) 08/22/18 14:16 Urine Protein 100 mg/dl mg/dL (Negative) 08/22/18 14:16 Urine Glucose (UA) 50 mg/dL (Negative) 08/22/18 14:16 Urine Ketones Neg mg/dL (Negative) 08/22/18 14:16 Urine Blood Neg (Negative) 08/22/18 14:16 Urine Nitrite Neg (Negative) 08/22/18 14:16 Urine Bilirubin Neg (Negative) 08/22/18 14:16 Urine Urobilinogen < 2.0 mg/dL (<2.0) 08/22/18 14:16 Ur Leukocyte Esterase Neg (Negative) 08/22/18 14:16 Urine WBC (Auto) 1.0 /HPF (0.0-6.0) 08/22/18 14:16 Urine RBC (Auto) 2.0 /HPF (0.0-6.0) 08/22/18 14:16 U Epithel Cells (Auto) 1.0 /HPF (0-13.0) 08/22/18 14:16 Urine Creatinine 70.2 mg/dL (0.1-20.0) H 08/22/18 16:41 Protein/Creatinin Ratio 3.97 08/22/18 16:41 Urine Sodium 47 mmol/L 08/21/18 00:00 Urine Total Protein 279 mg/dL (5-11.8) H 08/22/18 16:41 Hepatitis A IgM Ab Non-reactive (NonReactive) 08/21/18 16:23 Hep Bs Antigen Non-reactive (Negative) 08/21/18 16:23 Hep B Core IgM Ab Non-reactive (NonReactive) 08/21/18 16:23 Hepatitis C Antibody Reactive (NonReactive) A 08/21/18 16:23 Active Medications - Current Medications Current Medications: Generic Name Dose Route Start Last Admin Trade Name Freq PRN Reason Stop Dose Admin Acetaminophen 650 mg 08/21/18 18:42 Tylenol PO Q4H PRN Pain, Mild (1-3) Acetaminophen/Hydrocodone Bitart 1 each 08/21/18 18:44 08/23/18 01:29 [place] 5/325 PO 1 each Q6H PRN Administration Pain Acetylcysteine 600 mg 08/21/18 22:00 08/23/18 10:37 Mucomyst Oral PO 600 mg BID JESSICA Administration Aspirin 325 mg 08/22/18 10:00 08/23/18 10:36 Aspirin PO 325 mg QDAY JESSICA Administration Atorvastatin Calcium 40 mg 08/21/18 22:00 08/22/18 21:29 Lipitor PO 40 mg QHS JESSICA Administration Bisacodyl 10 mg 08/21/18 18:42 Dulcolax [place] QDAY PRN Constipation Dextrose 50 ml 08/21/18 18:58 D50w (25gm) Syringe IV PRN PRN Hypoglycemia Hydralazine HCl 10 mg 08/21/18 18:54 Apresoline IV Q6H PRN Hypertension Hydromorphone HCl 0.5 mg 08/21/18 19:41 08/23/18 09:11 Dilaudid IV 0.5 mg ONCE PRN Administration pain Heparin Sodium/Sodium Chloride 25,000 unit in 500 mls @ 20 mls/hr 08/21/18 21:00 08/22/18 19:53 Heparin/ 0.45% Nacl-25,000 Unit/500 Ml IV 1,000 units/hr TITRATE JESSICA 20 mls/hr Administration Protocol 1,000 UNITS/HR Magnesium Sulfate 2 gm in 50 mls @ 25 mls/hr 08/23/18 09:00 08/23/18 10:36 Magnesium Sulfate 2gm/50ml IV 08/23/18 10:59 25 mls/hr ONCE ONE Administration Insulin Human Lispro 0 unit 08/22/18 12:00 08/23/18 06:27 Humalog SUB-Q Not Given Q6HR [facility] Protocol Magnesium Hydroxide 30 ml 08/21/18 18:42 Milk Of Magnesia PO Q4H PRN Constipation Metoclopramide HCl 10 mg 08/21/18 18:42 Reglan PO Q6H PRN Nausea And Vomiting Nitroglycerin 0.4 mg 08/21/18 18:17 08/21/18 18:40 Nitrostat SL 0.4 mg .Q5MIN PRN Administration Chest Pain Ondansetron HCl 4 mg 08/21/18 18:42 Zofran IV Q8H PRN Nausea And Vomiting Promethazine HCl 25 mg 08/21/18 18:42 Phenergan MS Q6H PRN Nausea And Vomiting Sodium Chloride 10 ml 08/21/18 18:42 Sodium Chloride Flush Syringe 10 Ml IV PRN PRN LINE FLUSH Sodium Chloride 10 ml 08/21/18 18:49 Sodium Chloride Flush Syringe 10 Ml IV PRN PRN LINE FLUSH Zolpidem Tartrate 5 mg 08/21/18 21:22 08/22/18 21:28 Ambien PO 5 mg QHS PRN Administration Sleep
--- NOTE | 2018-08-23 13:38 | Progress Note ---
Subjective Date of service: 08/23/18 Interval history: reviewed the record and the MRI is not back as yet the carotid u/s is negative etiology stroke likely small vessel Objective - Vital Sign Vital Signs - 12hr 08/23/18 08/23/18 08/23/18 04:27 07:53 07:54 Temperature 98.2 F 98.3 F Pulse Rate 82 85 Respiratory 16 18 Rate Respiratory Rate [Left Chest] Blood Pressure 143/70 146/65 O2 Sat by Pulse 96 98 Oximetry 08/23/18 08/23/18 08/23/18 09:11 09:41 10:00 Temperature Pulse Rate Respiratory 20 20 Rate Respiratory 20 Rate [Left Chest] Blood Pressure O2 Sat by Pulse 97 Oximetry 08/23/18 08/23/18 08/23/18 11:19 11:21 12:04 Temperature 98.4 F Pulse Rate 86 86 Respiratory 18 Rate Respiratory Rate [Left Chest] Blood Pressure 160/69 O2 Sat by Pulse 94 Oximetry - Laboratory Findings CBC and BMP: 08/23/18 04:45 08/23/18 04:45 Abnormal Lab Findings: Abnormal Labs 08/21/18 08/21/18 08/21/18 00:00 16:23 16:23 RBC 3.56 L Hgb Hct RDW 16.1 H Lymph % (Auto) 44.2 H D-Dimer Chloride 108.1 H Carbon Dioxide 18 L BUN 39 H Creatinine 2.4 H Glucose 221 H POC Glucose Hemoglobin A1c Magnesium ALT Troponin T 0.034 H Total Protein Albumin Triglycerides 258 H PTH Intact Urine Creatinine 46.5 H Urine Total Protein Hepatitis C Antibody 08/21/18 08/21/18 08/21/18 16:23 16:23 16:23 RBC Hgb Hct RDW Lymph % (Auto) D-Dimer 327.52 H Chloride Carbon Dioxide BUN Creatinine Glucose POC Glucose Hemoglobin A1c 9.3 H Magnesium ALT Troponin T Total Protein Albumin Triglycerides PTH Intact Urine Creatinine Urine Total Protein Hepatitis C Antibody Reactive A 08/21/18 08/21/18 08/22/18 18:59 23:42 06:16 RBC Hgb Hct RDW Lymph % (Auto) D-Dimer Chloride Carbon Dioxide BUN Creatinine Glucose POC Glucose 176 H 276 H 264 H Hemoglobin A1c Magnesium ALT Troponin T Total Protein Albumin Triglycerides PTH Intact Urine Creatinine Urine Total Protein Hepatitis C Antibody 08/22/18 08/22/18 08/22/18 11:32 12:03 16:41 RBC Hgb Hct RDW Lymph % (Auto) D-Dimer Chloride 108.9 H Carbon Dioxide 18 L BUN 36 H Creatinine 2.5 H Glucose 297 H POC Glucose 291 H Hemoglobin A1c Magnesium ALT 6 L Troponin T Total Protein 5.7 L Albumin 3.0 L Triglycerides PTH Intact Urine Creatinine 70.2 H Urine Total Protein 279 H Hepatitis C Antibody 08/22/18 08/22/18 08/23/18 16:55 23:43 04:45 RBC Hgb 9.1 L Hct 28.0 L RDW Lymph % (Auto) D-Dimer Chloride Carbon Dioxide BUN Creatinine Glucose POC Glucose 182 H 340 H Hemoglobin A1c Magnesium ALT Troponin T Total Protein Albumin Triglycerides PTH Intact Urine Creatinine Urine Total Protein Hepatitis C Antibody 08/23/18 08/23/18 08/23/18 04:45 04:45 05:27 RBC Hgb Hct RDW Lymph % (Auto) D-Dimer Chloride 108.4 H Carbon Dioxide 20 L BUN 32 H Creatinine 2.6 H Glucose 226 H POC Glucose 241 H Hemoglobin A1c Magnesium 1.60 L ALT Troponin T Total Protein Albumin Triglycerides PTH Intact 128.0 H Urine Creatinine Urine Total Protein Hepatitis C Antibody 08/23/18 11:06 RBC Hgb Hct RDW Lymph % (Auto) D-Dimer Chloride Carbon Dioxide BUN Creatinine Glucose POC Glucose 255 H Hemoglobin A1c Magnesium ALT Troponin T Total Protein Albumin Triglycerides PTH Intact Urine Creatinine Urine Total Protein Hepatitis C Antibody
[2018-08-23] MEDS: HEPARIN/ 0.45% NACL-25,000 UNIT/500 ML 25,000 UNIT/500 ML BAG IV SCH (20:49)
[2018-08-23] MEDS: AMBIEN PO PRN (22:36)
[2018-08-24] MEDS: HumaLOG SUB-Q SCH ×5 (00:10→17:50)
[2018-08-24] MEDS: DILAUDID IV PRN ×2 (02:00→07:07)
[2018-08-24 07:45] LABS: Calcium 8.8 mg/dL (8.4-10.2)
--- NOTE | 2018-08-24 09:17 | Progress Note ---
Assessment and Plan 1. 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 Renal US was negative for hydronephrosis. Increase in the creatinine level noted. Monitor renal function. Renal prognosis is guarded. Avoid nephrotoxic agents. Meds dosage based on GFR. 2. Nephrotic range proteinuria: Likely secondary to diabetic nephropathy. Chronically elevated HbA1C noted. CASSIE, ANCA, SPEP and Complements ordered. 3. FEN: Metabolic acidosis. Monitor lytes. 4. Suspected acute CVA. 5. Chest pain: Followed by Cards. Stress test negative. 6. Complex right kidney lesion: CT abdomen. 7. Type DM. 8. HTN. 9. Hepatitis C. Subjective Date of service: 08/24/18 Interval history: Patient was seen and examined at the bedside. Doing ok. Objective - Vital Signs Vital signs: Vital Signs - 12hr 08/23/18 08/23/18 08/24/18 22:20 23:40 02:00 Temperature 98.2 F Pulse Rate 85 Pulse Rate [ 84 Apical] Pulse Rate [ 84 From Monitor] Respiratory 18 12 16 Rate Blood Pressure 174/75 O2 Sat by Pulse 98 97 Oximetry 08/24/18 08/24/18 08/24/18 02:30 04:42 07:07 Temperature 98.4 F Pulse Rate 84 Pulse Rate [ Apical] Pulse Rate [ From Monitor] Respiratory 18 14 18 Rate Blood Pressure 146/67 O2 Sat by Pulse 95 Oximetry 08/24/18 08/24/18 08/24/18 08:14 08:15 08:16 Temperature 98.1 F 98.1 F Pulse Rate 84 Pulse Rate [ Apical] Pulse Rate [ From Monitor] Respiratory 18 Rate Blood Pressure 151/74 O2 Sat by Pulse 92 Oximetry - General Appearance General appearance: well-developed, well-nourished, appears stated age, other (not in distress) EENT: ATNC, PERRL, mucous membranes moist, hearing intact, vision intact Neck: supple Respiratory: Present: Clear to Ascultation Cardiology: regular, S1S2, no murmurs Gastrointestinal: normoactive bowel sounds, no tenderness, no distended Integumentary: no rash, warm and dry Neurologic: no asterixis, alert and oriented x3, other (able to move all 4 extremities) Musculoskeletal: other (no edema) - Lab 08/23/18 04:45 08/24/18 07:01 Most recent lab results Calcium 8.8 mg/dL (8.4-10.2) 08/24/18 07:01 Phosphorus 3.20 mg/dL (2.5-4.5) 08/23/18 04:45 Magnesium 1.60 mg/dL (1.7-2.3) L 08/23/18 04:45 Urine Creatinine 70.2 mg/dL (0.1-20.0) H 08/22/18 16:41 Urine Sodium 47 mmol/L 08/21/18 00:00 Urine Total Protein 279 mg/dL (5-11.8) H 08/22/18 16:41 Medications & Allergies - Medications Allergies/Adverse Reactions: Allergies aspirin Allergy (Verified 10/25/14 14:28) Rash ketorolac tromethamine [From Toradol] Allergy (Verified 10/25/14 14:28) Rash morphine Allergy (Verified 10/25/14 14:28) Rash Home Medications: Home Medications Medication Instructions Recorded Confirmed Last Taken Type HYDROcodone/APAP 5-325 [[place] 1 each PO Q6HR PRN #12 tablet 10/26/14 Unknown Rx 5/325] ALPRAZolam 0.5 mg 08/23/18 Unknown History Ambien 10 mg 08/23/18 Unknown History Atorvastatin 80 mg 08/23/18 Unknown History Clopidogrel 75 mg 08/23/18 Unknown History Diclofenac EC 75 mg 08/23/18 Unknown History Gabapentin 300 mg 08/23/18 Unknown History Humalog 08/23/18 Unknown History Hydrocodone-Acetamin 5-325 mg 08/23/18 Unknown History Lantus 08/23/18 Unknown History Lyrica 75 mg 08/23/18 Unknown History Metformin HCl 1,000 mg 08/23/18 Unknown History Metoprolol Tartrate 25 mg 08/23/18 Unknown History Promethazine 25 mg 08/23/18 Unknown History Proventil Hfa 90 INHALATION 08/23/18 Unknown History Tylenol /Codeine # 3 tab 3 PRN 08/23/18 Unknown History Active Medications: Generic Name Dose Route Start Last Admin Trade Name Freq PRN Reason Stop Dose Admin Acetaminophen 650 mg 08/21/18 18:42 Tylenol PO Q4H PRN Pain, Mild (1-3) Acetaminophen/Hydrocodone Bitart 1 each 08/21/18 18:44 08/23/18 01:29 [place] 5/325 PO 1 each Q6H PRN Administration Pain Acetylcysteine 600 mg 08/21/18 22:00 08/23/18 22:42 Mucomyst Oral PO 600 mg BID JESSICA Administration Aspirin 325 mg 08/22/18 10:00 08/23/18 10:36 Aspirin PO 325 mg QDAY [facility] Administration Atorvastatin Calcium 40 mg 08/21/18 22:00 08/23/18 22:36 Lipitor PO 40 mg QHS [facility] Administration Bisacodyl 10 mg 08/21/18 18:42 Dulcolax [place] QDAY PRN Constipation Dextrose 50 ml 08/21/18 18:58 D50w (25gm) Syringe IV PRN PRN Hypoglycemia Hydralazine HCl 10 mg 08/21/18 18:54 Apresoline IV Q6H PRN Hypertension Hydromorphone HCl 0.5 mg 08/24/18 00:18 08/24/18 07:07 Dilaudid IV 0.5 mg Q4H PRN Administration pain( 7-10) Heparin Sodium/Sodium Chloride 25,000 unit in 500 mls @ 20 mls/hr 08/21/18 21:00 08/24/18 07:38 Heparin/ 0.45% Nacl-25,000 Unit/500 Ml IV 900 units/hr TITRATE [facility] 18 mls/hr Titration Protocol 1,000 UNITS/HR Insulin Human Lispro 0 unit 08/22/18 12:00 08/24/18 05:58 Humalog SUB-Q Not Given Q6HR [facility] Protocol Magnesium Hydroxide 30 ml 08/21/18 18:42 Milk Of Magnesia PO Q4H PRN Constipation Metoclopramide HCl 10 mg 08/21/18 18:42 Reglan PO Q6H PRN Nausea And Vomiting Nitroglycerin 0.4 mg 08/21/18 18:17 08/21/18 18:40 Nitrostat SL 0.4 mg .Q5MIN PRN Administration Chest Pain Ondansetron HCl 4 mg 08/21/18 18:42 Zofran IV Q8H PRN Nausea And Vomiting Promethazine HCl 25 mg 08/21/18 18:42 Phenergan GA Q6H PRN Nausea And Vomiting Sodium Chloride 10 ml 08/21/18 18:42 Sodium Chloride Flush Syringe 10 Ml IV PRN PRN LINE FLUSH Sodium Chloride 10 ml 08/21/18 18:49 Sodium Chloride Flush Syringe 10 Ml IV PRN PRN LINE FLUSH Zolpidem Tartrate 5 mg 08/21/18 21:22 08/23/18 22:36 Ambien PO 5 mg QHS PRN Administration Sleep
[2018-08-24] MEDS ORDERED: LEXISCAN IV ONE ×2 (10:55→10:56)
[2018-08-24] MEDS: MUCOMYST ORAL PO SCH (11:54)
[2018-08-24] MEDS: ASPIRIN PO SCH (13:35)
[2018-08-24] MEDS: NORCO 5/325 PO PRN ×2 (13:35→20:16)
--- NOTE | 2018-08-24 15:32 | Progress Note ---
Subjective Date of service: 08/24/18 Interval history: alert and fewer symptoms from the stroke less weakness on the lefty side continue medical management explained test results to the patient Objective - Vital Sign Vital Signs - 12hr 08/24/18 08/24/18 08/24/18 04:42 07:07 08:14 Temperature 98.4 F 98.1 F Pulse Rate 84 Respiratory 14 18 Rate Blood Pressure 146/67 O2 Sat by Pulse 95 Oximetry 08/24/18 08/24/18 08/24/18 08:15 08:16 10:00 Temperature 98.1 F Pulse Rate 84 83 Respiratory 18 Rate Blood Pressure 151/74 O2 Sat by Pulse 92 Oximetry 08/24/18 08/24/18 08/24/18 10:54 11:02 11:38 Temperature Pulse Rate Respiratory Rate Blood Pressure 175/79 150/78 155/81 O2 Sat by Pulse Oximetry 08/24/18 08/24/18 08/24/18 11:41 11:42 11:44 Temperature Pulse Rate Respiratory Rate Blood Pressure 177/90 157/68 162/58 O2 Sat by Pulse Oximetry 08/24/18 08/24/18 08/24/18 11:45 11:48 13:00 Temperature 98.3 F Pulse Rate 93 H Respiratory 20 Rate Blood Pressure 162/77 158/80 191/88 O2 Sat by Pulse 97 Oximetry 08/24/18 13:58 Temperature Pulse Rate Respiratory Rate Blood Pressure 191/88 O2 Sat by Pulse Oximetry - Laboratory Findings CBC and BMP: 08/23/18 04:45 08/24/18 07:01 Abnormal Lab Findings: Abnormal Labs 08/21/18 08/21/18 08/21/18 00:00 16:23 16:23 RBC 3.56 L Hgb Hct RDW 16.1 H Lymph % (Auto) 44.2 H D-Dimer Heparin Anti-Xa Level Chloride 108.1 H Carbon Dioxide 18 L BUN 39 H Creatinine 2.4 H Glucose 221 H POC Glucose Hemoglobin A1c Magnesium ALT Troponin T 0.034 H Total Protein Albumin Triglycerides 258 H PTH Intact Urine Creatinine 46.5 H Urine Total Protein Hepatitis C Antibody 08/21/18 08/21/18 08/21/18 16:23 16:23 16:23 RBC Hgb Hct RDW Lymph % (Auto) D-Dimer 327.52 H Heparin Anti-Xa Level Chloride Carbon Dioxide BUN Creatinine Glucose POC Glucose Hemoglobin A1c 9.3 H Magnesium ALT Troponin T Total Protein Albumin Triglycerides PTH Intact Urine Creatinine Urine Total Protein Hepatitis C Antibody Reactive A 08/21/18 08/21/18 08/22/18 18:59 23:42 06:16 RBC Hgb Hct RDW Lymph % (Auto) D-Dimer Heparin Anti-Xa Level Chloride Carbon Dioxide BUN Creatinine Glucose POC Glucose 176 H 276 H 264 H Hemoglobin A1c Magnesium ALT Troponin T Total Protein Albumin Triglycerides PTH Intact Urine Creatinine Urine Total Protein Hepatitis C Antibody 08/22/18 08/22/18 08/22/18 11:32 12:03 16:41 RBC Hgb Hct RDW Lymph % (Auto) D-Dimer Heparin Anti-Xa Level Chloride 108.9 H Carbon Dioxide 18 L BUN 36 H Creatinine 2.5 H Glucose 297 H POC Glucose 291 H Hemoglobin A1c Magnesium ALT 6 L Troponin T Total Protein 5.7 L Albumin 3.0 L Triglycerides PTH Intact Urine Creatinine 70.2 H Urine Total Protein 279 H Hepatitis C Antibody 08/22/18 08/22/18 08/23/18 16:55 23:43 04:45 RBC Hgb 9.1 L Hct 28.0 L RDW Lymph % (Auto) D-Dimer Heparin Anti-Xa Level Chloride Carbon Dioxide BUN Creatinine Glucose POC Glucose 182 H 340 H Hemoglobin A1c Magnesium ALT Troponin T Total Protein Albumin Triglycerides PTH Intact Urine Creatinine Urine Total Protein Hepatitis C Antibody 08/23/18 08/23/18 08/23/18 04:45 04:45 05:27 RBC Hgb Hct RDW Lymph % (Auto) D-Dimer Heparin Anti-Xa Level Chloride 108.4 H Carbon Dioxide 20 L BUN 32 H Creatinine 2.6 H Glucose 226 H POC Glucose 241 H Hemoglobin A1c Magnesium 1.60 L ALT Troponin T Total Protein Albumin Triglycerides PTH Intact 128.0 H Urine Creatinine Urine Total Protein Hepatitis C Antibody 08/23/18 08/23/18 08/23/18 11:06 13:15 17:04 RBC Hgb Hct RDW Lymph % (Auto) D-Dimer Heparin Anti-Xa Level 0.80 H Chloride Carbon Dioxide BUN Creatinine Glucose POC Glucose 255 H 247 H Hemoglobin A1c Magnesium ALT Troponin T Total Protein Albumin Triglycerides PTH Intact Urine Creatinine Urine Total Protein Hepatitis C Antibody 08/23/18 08/24/18 08/24/18 22:25 00:12 05:36 RBC Hgb Hct RDW Lymph % (Auto) D-Dimer Heparin Anti-Xa Level 0.80 H Chloride Carbon Dioxide BUN Creatinine Glucose POC Glucose 258 H 180 H Hemoglobin A1c Magnesium ALT Troponin T Total Protein Albumin Triglycerides PTH Intact Urine Creatinine Urine Total Protein Hepatitis C Antibody 08/24/18 08/24/18 07:01 13:03 RBC Hgb Hct RDW Lymph % (Auto) D-Dimer Heparin Anti-Xa Level Chloride 110.2 H Carbon Dioxide 19 L BUN 29 H Creatinine 2.9 H Glucose 191 H POC Glucose 210 H Hemoglobin A1c Magnesium ALT Troponin T Total Protein Albumin Triglycerides PTH Intact Urine Creatinine Urine Total Protein Hepatitis C Antibody
--- NOTE | 2018-08-24 17:46 | Event Note ---
Date: 08/24/18 [facility] thallium stress test was normal.
--- NOTE | 2018-08-24 19:01 | Magnetic Resonance Report ---
PROCEDURE: MR BRAIN WO CON TECHNIQUE: MRI examination of the brain without IV contrast. HISTORY: stroke COMPARISONS: Head CT 08/21/2018 FINDINGS: Chronic-appearing small lacunar infarct upper left internal capsule extending into the left caudate b alexus and left periventricular white matter. Slight mucosal thickening ethmoid and maxillary sinuses. The included air filled sinuses contain no a cute fluid level. Foci of T2 hyperintensity in the cerebral white matter, while nonspecific, are present and usually at tributed to chronic ischemic gliosis. It can occur secondary to the normal aging process, hypertensio n, vasculitis, migraine related changes, or arterial sclerotic vascular disease. The differential inc ludes any cause of gliosis as well as demyelination in the appropriate clinical setting. There is ventricular and sulcal prominence compatible with global symmetric cerebrocortical atrophy. The brain is without mass, mass effect, hemorrhage, or acute infarct. There are no areas of brain restricted diffusion to suggest an acute ischemic infarct. There is no midline shift or brain edema. IMPRESSION: No acute CVA or brain mass Small chronic appearing left lacunar infarct in the upper left internal capsule extending into the le ft caudate body and left periventricular white matter This document is electronically signed by Nadir Sim MD., August 24 2018 06:59:44 PM ET
--- NOTE | 2018-08-24 21:40 | Magnetic Resonance Report ---
PROCEDURE: MR MRA/MRV HEAD WO CON TECHNIQUE: 3-D [id number] MRA of the brain with maximum intensity projection images obtained. HISTORY: stroke COMPARISONS: MRI brain also performed today FINDINGS: There is a possible small, approximately 1.6 mm, aneurysm arising from the anterior communicating art vannesa and directed inferiorly. There is no evidence of occlusion or hemodynamically significant stenosis of the major intracranial a rteries. The predominant supply to the posterior cerebral arteries bilaterally is from the internal carotid ar teries via the posterior communicating arteries (normal variant). IMPRESSION: 1. Possible small, approximately 1.6 mm, aneurysm arising from the anterior communicating artery. 2. Otherwise unremarkable study. This document is electronically signed by Silvia Lindsay MD., August 24 2018 09:38:20 PM ET
[2018-08-24] MEDS: LOPRESSOR PO SCH (22:29)
[2018-08-24] MEDS: AMBIEN PO PRN (22:29)
--- NOTE | 2018-08-25 00:17 | Treadmill Report ---
THALLIUM STRESS TEST LEFT VENTRICLE: Left ventricular chamber size is within normal spread. Perfusion study demonstrates homogeneous uptake of the tracer in all segments, no significant defects identified. Gated analysis demonstrates normal left ventricular systolic function, ejection fraction 68%. CONCLUSION: Normal myocardial perfusion study. JOB# [id number] CA/NTS
[2018-08-25] MEDS: NORCO 5/325 PO PRN ×2 (00:45→04:46)
[2018-08-25] MEDS: HumaLOG SUB-Q SCH ×2 (00:45→06:20)
[2018-08-25 08:13] VITALS: BP 143/66
--- NOTE | 2018-08-25 08:23 | Progress Note ---
Assessment and Plan Assessment and plan: Acute CVA with left-sided weakness. CT scan reveals focal left internal capsule with age indeterminate ischemia.? Subacute versus chronic. Follow-up MRI/MRA, echocardiogram and carotid Dopplers. Patient with previous history of CVA. Chest pain. Patient does have elevated troponin and history of coronary artery disease. Continue heparin drip. Cardiology following. Stress test per cardiology. CAD. As above. History of CABG done at [facility] in 2013. Stress test in 2015 completed here reported as normal Diabetes mellitus type 2. Continue Accu-Cheks and sliding scale insulin. Hypertension. Continue current antihypertensive medications. Seizure disorder. Seizure precautions. Disposition; will discharge after stress test and MRI. History Interval history: Patient was seen and evaluated at the bedside, patient has left-sided weakness which is chronic Hospitalist Physical - Physical exam Narrative exam: Not in cardiopulmonary distress. The patient appeared well nourished and normally developed. Vital signs as documented. Head exam is unremarkable. No scleral icterus . Neck is without jugular venous distension, thyromegaly, or carotid bruits. Lungs are clear to auscultation. Cardiac exam reveals regular rate and Rhythm. First and second heart sounds normal. No murmurs, rubs or gallops. Abdominal exam reveals normal bowel sounds, no masses, no organomegaly and no aortic enlargement. Extremities are nonedematous and both femoral and pedal pulses are normal. 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 Left-sided weakness - Constitutional Vitals: Temp Pulse Resp BP Pulse Ox 97.7 F 66 18 143/66 95 08/25/18 08:00 08/25/18 08:00 08/25/18 08:00 08/25/18 08:00 08/25/18 08:00 General appearance: Present: no acute distress Results - Labs CBC & Chem 7: 08/23/18 04:45 08/25/18 04:37 Labs: Laboratory Last Values WBC 7.0 K/mm3 (4.5-11.0) 08/21/18 16:23 RBC 3.56 M/mm3 (3.65-5.03) L 08/21/18 16:23 Hgb 9.1 gm/dl (10.1-14.3) L 08/23/18 04:45 Hct 28.0 % (30.3-42.9) L 08/23/18 04:45 MCV 85 fl (79-97) 08/21/18 16:23 MCH 28 pg (28-32) 08/21/18 16:23 MCHC 33 % (30-34) 08/21/18 16:23 RDW 16.1 % (13.2-15.2) H 08/21/18 16:23 Plt Count 154 K/mm3 (140-440) 08/23/18 04:45 Lymph % (Auto) 44.2 % (13.4-35.0) H 08/21/18 16:23 [place] % (Auto) 7.3 % (0.0-7.3) 08/21/18 16:23 Eos % (Auto) 2.1 % (0.0-4.3) 08/21/18 16: Baso % (Auto) 0.5 % (0.0-1.8) 08/21/18 16:23 Lymph # 3.1 K/mm3 (1.2-5.4) 08/21/18 16:23 [place] # 0.5 K/mm3 (0.0-0.8) 08/21/18 16:23 Eos # 0.1 K/mm3 (0.0-0.4) 08/21/18 16: Baso # 0.0 K/mm3 (0.0-0.1) 08/21/18 16:23 Seg Neutrophils % 45.9 % (40.0-70.0) 08/21/18 16: Seg Neutrophils # 3.2 K/mm3 (1.8-7.7) 08/21/18 16:23 PT 14.9 Sec. (12.2-14.9) 08/21/18 21:20 INR 1.10 (0.87-1.13) 08/21/18 21:20 APTT 27.3 Sec. (24.2-36.6) 08/21/18 21:20 Thrombin Time 18.0 Sec. (15.1-19.6) 08/21/18 16:23 D-Dimer 327.52 ng/mlDDU (0-234) H 08/21/18 16:23 Heparin Anti-Xa Level 0.53 U.I./ml (0.3-0.7) 08/24/18 07:01 Sodium 138 mmol/L (137-145) 08/25/18 04:37 Potassium 5.0 mmol/L (3.6-5.0) 08/25/18 04:37 Chloride 109.1 mmol/L (98-107) H 08/25/18 04:37 Carbon Dioxide 17 mmol/L (22-30) L 08/25/18 04:37 Anion Gap 17 mmol/L 08/25/18 04:37 BUN 30 mg/dL (7-17) H 08/25/18 04:37 Creatinine 2.9 mg/dL (0.7-1.2) H 08/25/18 04:37 Estimated GFR 16 ml/min 08/25/18 04:37 BUN/Creatinine Ratio 10 % 08/25/18 04:37 Glucose 175 mg/dL (65-100) H 08/25/18 04:37 POC Glucose 221 (70-105) H 08/25/18 06:14 Hemoglobin A1c 9.3 % (4-6) H 08/21/18 16:23 Calcium 9.0 mg/dL (8.4-10.2) 08/25/18 04:37 Phosphorus 3.20 mg/dL (2.5-4.5) 08/23/18 04:45 Magnesium 1.60 mg/dL (1.7-2.3) L 08/23/18 04:45 Total Bilirubin < 0.20 mg/dL (0.1-1.2) 08/22/18 11:32 AST 9 units/L (5-40) 08/22/18 11:32 ALT 6 units/L (7-56) L 08/22/18 11:32 Alkaline Phosphatase 108 units/L (35-129) 08/22/18 11:32 Troponin T 0.026 ng/mL (0.00-0.029) 08/22/18 01:01 NT-Pro-B Natriuret Pep 384.5 pg/mL (0-900) 08/21/18 16:23 Total Protein 5.7 g/dL (6.3-8.2) L 08/22/18 11:32 Albumin 3.0 g/dL (3.9-5) L 08/22/18 11:32 Albumin/Globulin Ratio 1.1 % 08/22/18 11:32 Triglycerides 258 mg/dL (2-149) H 08/21/18 16:23 Cholesterol 192 mg/dL (50-199) 08/21/18 16:23 LDL Cholesterol Direct 121 mg/dL (50-130) 08/21/18 16:23 HDL Cholesterol 43 mg/dL (40-59) 08/21/18 16:23 Cholesterol/HDL Ratio 4.46 % 08/21/18 16:23 PTH Intact 128.0 pg/mL (15-65) H 08/23/18 04:45 Urine Color Straw (Yellow) 08/22/18 14:16 Urine Turbidity Clear (Clear) 08/22/18 14:16 Urine pH 6.0 (5.0-7.0) 08/22/18 14:16 Ur Specific [place] 1.029 (1.003-1.030) 08/22/18 14:16 Urine Protein 100 mg/dl mg/dL (Negative) 08/22/18 14:16 Urine Glucose (UA) 50 mg/dL (Negative) 08/22/18 14:16 Urine Ketones Neg mg/dL (Negative) 08/22/18 14:16 Urine Blood Neg (Negative) 08/22/18 14:16 Urine Nitrite Neg (Negative) 08/22/18 14:16 Urine Bilirubin Neg (Negative) 08/22/18 14:16 Urine Urobilinogen < 2.0 mg/dL (<2.0) 08/22/18 14:16 Ur Leukocyte Esterase Neg (Negative) 08/22/18 14:16 Urine WBC (Auto) 1.0 /HPF (0.0-6.0) 08/22/18 14:16 Urine RBC (Auto) 2.0 /HPF (0.0-6.0) 08/22/18 14:16 U Epithel Cells (Auto) 1.0 /HPF (0-13.0) 08/22/18 14:16 Urine Creatinine 70.2 mg/dL (0.1-20.0) H 08/22/18 16:41 Protein/Creatinin Ratio 3.97 08/22/18 16:41 Urine Sodium 47 mmol/L 08/21/18 00:00 Urine Total Protein 279 mg/dL (5-11.8) H 08/22/18 16:41 Hepatitis A IgM Ab Non-reactive (NonReactive) 08/21/18 16:23 Hep Bs Antigen Non-reactive (Negative) 08/21/18 16:23 Hep B Core IgM Ab Non-reactive (NonReactive) 08/21/18 16:23 Hepatitis C Antibody Reactive (NonReactive) A 08/21/18 16:23 Active Medications - Current Medications Current Medications: Generic Name Dose Route Start Last Admin Trade Name Freq PRN Reason Stop Dose Admin Acetaminophen 650 mg 08/21/18 18:42 Tylenol PO Q4H PRN Pain, Mild (1-3) Acetaminophen/Hydrocodone Bitart 2 each 08/24/18 22:54 08/25/18 04:46 [place] 5/325 PO 2 each Q4H PRN Administration Pain, Moderate (4-6) Aspirin 325 mg 08/22/18 10:00 08/24/18 13:35 Aspirin PO 325 mg QDAY JESSICA Administration Atorvastatin Calcium 40 mg 08/21/18 22:00 08/24/18 22:29 Lipitor PO 40 mg QHS JESSICA Administration Bisacodyl 10 mg 08/21/18 18:42 Dulcolax MI QDAY PRN Constipation Dextrose 50 ml 08/21/18 18:58 D50w (25gm) Syringe IV PRN PRN Hypoglycemia Hydralazine HCl 10 mg 08/21/18 18:54 08/24/18 13:58 Apresoline IV 10 mg Q6H PRN Administration Hypertension Insulin Human Lispro 0 unit 08/22/18 12:00 08/25/18 06:20 Humalog SUB-Q 3 unit Q6HR JESSICA Administration Protocol Magnesium Hydroxide 30 ml 08/21/18 18:42 Milk Of Magnesia PO Q4H PRN Constipation Metoclopramide HCl 10 mg 08/21/18 18:42 Reglan PO Q6H PRN Nausea And Vomiting Metoprolol Tartrate 50 mg 08/24/18 22:00 08/24/18 22:29 Lopressor PO 50 mg BID JESSICA Administration Nitroglycerin 0.4 mg 08/21/18 18:17 08/21/18 18:40 Nitrostat SL 0.4 mg .Q5MIN PRN Administration Chest Pain Ondansetron HCl 4 mg 08/21/18 18:42 Zofran IV Q8H PRN Nausea And Vomiting Promethazine HCl 25 mg 08/21/18 18:42 Phenergan MI Q6H PRN Nausea And Vomiting Sodium Chloride 10 ml 08/21/18 18:42 Sodium Chloride Flush Syringe 10 Ml IV PRN PRN LINE FLUSH Sodium Chloride 10 ml 08/21/18 18:49 Sodium Chloride Flush Syringe 10 Ml IV PRN PRN LINE FLUSH Zolpidem Tartrate 5 mg 08/21/18 21:22 08/24/18 22:29 Ambien PO 5 mg QHS PRN Administration Sleep
--- NOTE | 2018-08-25 09:04 | Discharge Summary ---
Providers - Providers Date of Admission: 08/21/18 18:42 Attending physician: BERTHA RUSH MD 08/21/18 Consult to Cardiac Rehabilitation [CONS] Routine Reason For Exam: Phase I 08/21/18 18:42 Occupational Therapy Evaluate and Treat [CONS] Routine Comment: Reason For Exam: Neuro deficits Physical Therapy Evaluation and Treat [CONS] Routine Comment: Reason For Exam: Neuro deficits 08/21/18 18:43 Speech Therapy Evaluation and Treat [CONS] Routine Reason For Exam: swallow eval 08/21/18 18:49 Consult to Cardiology [CONS] Routine Consulting Provider: PRASHANT SOTELO Reason For Exam: chf 08/21/18 19:27 Consult to Physician [CONS] Routine Comment: Consulting Provider: PALMER ZELAYA Physician Instructions: Reason For Exam: arf 08/21/18 20:19 Consult to Physician [CONS] Routine Comment: Consulting Provider: MARIA DEL CARMEN OLVERA Physician Instructions: Reason For Exam: cva [facility] Reason for admission: TIA, hx of CVA Condition: Stable Pertinent studies: MRI head IMPRESSION: No acute CVA or brain mass Small chronic appearing left lacunar infarct in the upper left internal capsule extending into the left caudate body and left periventricular white matter Hospital course: 63 YO Female with HTN, CAD, CVA, [place], DM complicated by Neuropathy, CHF, Seizure Disorder presents to ED for evaluation. Pt states that she was in her usual state of health and was driving her car when she experienced and acute onset of pain in her chest. Pt sates that pain was 7/10, localized to the left chest, sharp, crushing in nature, radiates to the back, associated with shortness of breath and diaphoresis. Pt stopped her vehicle and dialed 911 on her mobile phone. EMS notified, and uopn arrival the patient was removed from her vehicle and found to be in distress. Pt transported to [facility]. En route to [facility] the patient developed slurred speech, left arm weakness, left leg weakness. A code stroke was called. Pt seen and evaluated in ED and found to have synptoms consistent with CVA as well as NSTEMI, Acute Renal Failure, Acidosis, and Hypertensive Urgency. Pt admitted to telemetry and initiated on heparin drip protocol after CT head was negative for ICH. Pt admission on 5/24/15 reviewed. All listed medi cation reconciled at time of admission. Acute CVA with left-sided weakness. CT scan reveals focal left internal capsule with age indeterminate ischemia.? Subacute versus chronic. MRI showed chronic ischemia no acute changes. Patient with previous history of CVA. Chest pain. Patient does have elevated troponin and history of coronary artery disease. treated according to NSTEMI protocol and stress test was done and negative for acute ischemia. CAD. As above. History of CABG done at [facility] in 2013. Stress test in 2015 completed here reported as normal Diabetes mellitus type 2 continue home medications. Hypertension. Continue current antihypertensive medications. Patient offered rehab but she declined and discharged home. Appropriate medication scripts were given at the time of discharge. Disposition: [id number] [facility] Time spent for discharge: 32 minutes - Discharge Diagnoses (1) History of CVA with residual deficit Status: Chronic (2) TIA (transient ischemic attack) Status: Acute (3) Chest pain Status: Acute Core Measure Documentation - Palliative Care Palliative Care/ Comfort Measures: Not Applicable - Core Measures Any of the following diagnoses?: stroke (TIA) - Stroke Discharge Requirements Statin for LDL = or >70 mg/dl on DC: Yes Anticoag for atrial fib/atrial flutter: Not Applicable Antithrombotic for ischemic stroke: Yes Exam - Physical Exam Narrative exam: Not in cardiopulmonary distress. The patient appeared well nourished and normally developed. Vital signs as documented. Head exam is unremarkable. No scleral icterus . Neck is without jugular venous distension, thyromegaly, or carotid bruits. Lungs are clear to auscultation. Cardiac exam reveals regular rate and Rhythm. First and second heart sounds normal. No murmurs, rubs or gallops. Abdominal exam reveals normal bowel sounds, no masses, no organomegaly and no aortic enlargement. Extremities are nonedematous and both femoral and pedal pulses are normal. 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 Mild left leg weakness - Constitutional Vitals: Temp Pulse Resp BP Pulse Ox 97.7 F 62 18 143/66 95 08/25/18 08:00 08/25/18 08:23 08/25/18 08:00 08/25/18 08:00 08/25/18 08:00 Plan Activity: advance as tolerated Weight Bearing Status: Weight Bear as Tolerated Diet: low cholesterol, low salt, diabetic Special Instructions: physical therapy [facility] FERNAND[facility] [Primary Care Provider] - 3-5 Days Forms: Discharge Signature Page Prescriptions: Atorvastatin 80 mg PO DAILY #60 Clopidogrel 75 mg PO DAILY #30
--- NOTE | 2018-08-25 09:33 | Progress Note ---
Assessment and Plan 1. 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 Renal US was negative for hydronephrosis. Creatinine level same as yesterday. Monitor renal function. Renal prognosis is guarded. Avoid nephrotoxic agents. Meds dosage based on GFR. 2. Nephrotic range proteinuria: Likely secondary to diabetic nephropathy. Chronically elevated HbA1C noted. CASSIE, ANCA, SPEP and Complements ordered. 3. FEN: Metabolic acidosis. Monitor lytes. 4. Suspected acute CVA. 5. Chest pain: Followed by Cards. Stress test negative. 6. Type DM. 7. HTN. 8. Hepatitis C. F/u with me in 1-2 weeks. Subjective Date of service: 08/25/18 Interval history: Patient was seen and examined at the bedside. Doing ok. Objective - Vital Signs Vital signs: Vital Signs - 12hr 08/24/18 08/24/18 08/25/18 22:29 22:57 00:01 Temperature 97.7 F Pulse Rate 89 74 Respiratory 20 Rate Respiratory 18 Rate [Left] Blood Pressure 180/78 173/77 Blood Pressure [Left] O2 Sat by Pulse 95 Oximetry 08/25/18 08/25/18 08/25/18 00:45 01:45 04:46 Temperature Pulse Rate Respiratory 16 18 18 Rate Respiratory Rate [Left] Blood Pressure Blood Pressure [Left] O2 Sat by Pulse Oximetry 08/25/18 08/25/18 08/25/18 04:49 05:31 08:00 Temperature 97.8 F 97.7 F Pulse Rate 68 66 Respiratory 20 18 18 Rate Respiratory Rate [Left] Blood Pressure 149/64 Blood Pressure 143/66 [Left] O2 Sat by Pulse 93 95 Oximetry 08/25/18 08:23 Temperature Pulse Rate 62 Respiratory Rate Respiratory Rate [Left] Blood Pressure Blood Pressure [Left] O2 Sat by Pulse Oximetry - General Appearance General appearance: well-developed, well-nourished, appears stated age, other (not in distress) EENT: ATNC, PERRL Neck: supple Respiratory: Present: Clear to Ascultation Cardiology: regular, S1S2, no murmurs Gastrointestinal: normoactive bowel sounds, no tenderness, no distended Integumentary: no rash, warm and dry Neurologic: no focal deficit, no asterixis, alert and oriented x3 Musculoskeletal: other (no edema) - Lab 08/23/18 04:45 08/25/18 04:37 Most recent lab results Calcium 9.0 mg/dL (8.4-10.2) 08/25/18 04:37 Phosphorus 3.20 mg/dL (2.5-4.5) 08/23/18 04:45 Magnesium 1.60 mg/dL (1.7-2.3) L 08/23/18 04:45 Urine Creatinine 70.2 mg/dL (0.1-20.0) H 08/22/18 16:41 Urine Sodium 47 mmol/L 08/21/18 00:00 Urine Total Protein 279 mg/dL (5-11.8) H 08/22/18 16:41 Medications & Allergies - Medications Allergies/Adverse Reactions: Allergies aspirin Allergy (Verified 10/25/14 14:28) Rash ketorolac tromethamine [From Toradol] Allergy (Verified 10/25/14 14:28) Rash morphine Allergy (Verified 10/25/14 14:28) Rash Home Medications: Home Medications Medication Instructions Recorded Confirmed Last Taken Type HYDROcodone/APAP 5-325 [[place] 1 each PO Q6HR PRN #12 tablet 10/26/14 Unknown Rx 5-325 mg TAB] ALPRAZolam 0.5 mg 08/23/18 Unknown History Ambien 10 mg 08/23/18 Unknown History Diclofenac EC 75 mg 08/23/18 Unknown History Gabapentin 300 mg 08/23/18 Unknown History Humalog 08/23/18 Unknown History Lantus 08/23/18 Unknown History Lyrica 75 mg 08/23/18 Unknown History Metformin HCl 1,000 mg 08/23/18 Unknown History Metoprolol Tartrate 25 mg 08/23/18 Unknown History Promethazine 25 mg 08/23/18 Unknown History Proventil Hfa 90 INHALATION 08/23/18 Unknown History Tylenol /Codeine # 3 tab 3 PRN 08/23/18 Unknown History Atorvastatin 80 mg PO DAILY #60 08/25/18 Unknown Rx Clopidogrel 75 mg PO DAILY #30 08/25/18 Unknown Rx Active Medications: Generic Name Dose Route Start Last Admin Trade Name Freq PRN Reason Stop Dose Admin Acetaminophen 650 mg 08/21/18 18:42 Tylenol PO Q4H PRN Pain, Mild (1-3) Acetaminophen/Hydrocodone Bitart 2 each 08/24/18 22:54 08/25/18 04:46 [place] 5/325 PO 2 each Q4H PRN Administration Pain, Moderate (4-6) Aspirin 325 mg 08/22/18 10:00 08/24/18 13:35 Aspirin PO 325 mg QDAY JESSICA Administration Atorvastatin Calcium 40 mg 08/21/18 22:00 08/24/18 22:29 Lipitor PO 40 mg QHS JESSICA Administration Bisacodyl 10 mg 08/21/18 18:42 Dulcolax NH QDAY PRN Constipation Dextrose 50 ml 08/21/18 18:58 D50w (25gm) Syringe IV PRN PRN Hypoglycemia Hydralazine HCl 10 mg 08/21/18 18:54 08/24/18 13:58 Apresoline IV 10 mg Q6H PRN Administration Hypertension Insulin Human Lispro 0 unit 08/22/18 12:00 08/25/18 06:20 Humalog SUB-Q 3 unit Q6HR [facility] Administration Protocol Magnesium Hydroxide 30 ml 08/21/18 18:42 Milk Of Magnesia PO Q4H PRN Constipation Metoclopramide HCl 10 mg 08/21/18 18:42 Reglan PO Q6H PRN Nausea And Vomiting Metoprolol Tartrate 50 mg 08/24/18 22:00 08/24/18 22:29 Lopressor PO 50 mg BID [facility] Administration Nitroglycerin 0.4 mg 08/21/18 18:17 08/21/18 18:40 Nitrostat SL 0.4 mg .Q5MIN PRN Administration Chest Pain Ondansetron HCl 4 mg 08/21/18 18:42 Zofran IV Q8H PRN Nausea And Vomiting Promethazine HCl 25 mg 08/21/18 18:42 Phenergan NH Q6H PRN Nausea And Vomiting Sodium Chloride 10 ml 08/21/18 18:42 Sodium Chloride Flush Syringe 10 Ml IV PRN PRN LINE FLUSH Sodium Chloride 10 ml 08/21/18 18:49 Sodium Chloride Flush Syringe 10 Ml IV PRN PRN LINE FLUSH Zolpidem Tartrate 5 mg 08/21/18 21:22 08/24/18 22:29 Ambien PO 5 mg QHS PRN Administration Sleep
[2018-08-25] MEDS: LOPRESSOR PO SCH (10:07)
[2018-08-25] MEDS: ASPIRIN PO SCH (10:07)
--- NOTE | 2018-08-25 11:22 | Progress Note ---
Assessment and Plan Suspected CVA CT scan reveals focal left internal capsule with age indeterminate ischemia; Subacute versus chronic. MRI brain reports no evidence of hemorrhage or acute infarct. carotid doppler reports less than 50% bilateral stenosis. normal LVEF, negative bubble study by echo this admission Chest pain, atypical no evidence of PE by CTA chest this admission normal MPI this admission Acute renal failure Anemia CAD s/p 1 vessel CABG 2013 Hypertension Diabetes Mellitus Hyperlipidemia No further cardiac workup indicated. Stable cardiac marley. Once discharged, patient has been advised to follow up with [facility] September 01 at 320p. Subjective Date of service: 08/25/18 Interval history: Patient has no cardiac complaints. She denies chest pain and shortness of breath. For planned discharge home today. Objective Vital Signs Temp Pulse Pulse Pulse Resp Resp BP 08/25/18 08:23 62 08/25/18 08:00 97.7 F 66 18 08/25/18 05:31 18 08/25/18 04:49 97.8 F 68 20 149/64 08/25/18 04:46 18 08/25/18 01:45 18 08/25/18 00:45 16 08/25/18 00:01 97.7 F 74 20 173/77 08/24/18 22:57 18 08/24/18 22:29 89 180/78 08/24/18 21:16 18 08/24/18 20:50 89 89 18 08/24/18 20:16 16 08/24/18 19:51 98.1 F 89 20 184/83 08/24/18 19:18 91 H 08/24/18 17:02 97 H 18 168/78 08/24/18 13:58 191/88 08/24/18 13:00 98.3 F 93 H 20 191/88 08/24/18 11:48 158/80 08/24/18 11:45 162/77 08/24/18 11:44 162/58 08/24/18 11:42 157/68 08/24/18 11:41 177/90 08/24/18 11:38 155/81 BP Pulse Ox 08/25/18 08:23 08/25/18 08:00 143/66 95 08/25/18 05:31 08/25/18 04:49 93 08/25/18 04:46 08/25/18 01:45 08/25/18 00:45 08/25/18 00:01 95 08/24/18 22:57 08/24/18 22:29 08/24/18 21:16 08/24/18 20:50 96 08/24/18 20:16 08/24/18 19:51 96 08/24/18 19:18 08/24/18 17:02 98 08/24/18 13:58 08/24/18 13:00 97 08/24/18 11:48 08/24/18 11:45 08/24/18 11:44 08/24/18 11:42 08/24/18 11:41 08/24/18 11:38 - Physical Examination General: No Apparent Distress HEENT: Positive: PERRL Neck: Positive: trachea midline Cardiac: Positive: Reg Rate and Rhythm Lungs: Positive: Decreased Breath Sounds Neuro: Positive: Weakness Extremities: Absent: edema - Labs and Meds Comprehensive Metabolic Panel 08/25/18 Range/Units 04:37 Sodium 138 (137-145) mmol/L Potassium 5.0 (3.6-5.0) mmol/L Chloride 109.1 H (98-107) mmol/L Carbon Dioxide 17 L (22-30) mmol/L BUN 30 H (7-17) mg/dL Creatinine 2.9 H (0.7-1.2) mg/dL Glucose 175 H (65-100) mg/dL Calcium 9.0 (8.4-10.2) mg/dL - EKG Sinus rhythms and dysrhythmias: sinus rhythm Repolarization changes or abnormalities: nonspecific abnormality, ST segment, and/or T wave
--- NOTE | 2018-08-25 14:04 | Cat Scan Report ---
PROCEDURE: CT ABDOMEN PELVIS WO CON TECHNIQUE: Multiple contiguous axial images were obtained from the lung bases to the pubic symphysis without administration of IV contrast. Reformatted sagittal and coronal images were available for re view. HISTORY: Kidney mass. COMPARISONS: Renal ultrasound performed on 08/22/2018 FINDINGS: Lower thorax: Normal. Liver and biliary tree: Normal noncontrast appearance. No biliary ductal dilatation. Gallbladder: Surgically absent. Spleen: Normal noncontrast appearance. Pancreas: Normal noncontrast appearance. Adrenal glands: Normal noncontrast appearance. Kidneys, ureters, and bladder: Evaluation is limited due to lack of IV contrast. A definite renal mas s is not identified. In comparison to the previous renal ultrasound, there are thick linear calcifica tions around an area of low density in the superior pole that may represent a peripherally calcified cyst. There is a simple appearing cyst in the superior pole of the left kidney that measures approxim ately 1.4 cm there are bilateral renal vascular calcifications. There are a few additional nonobstruc tive calcifications of the right kidney measuring up to 3 mm. No hydronephrosis. Bowel: No focal wall thickening. No evidence of obstruction. Peritoneum:No significant lymphadenopathy. No free air or free fluid. Pelvic organs: The uterus is surgically absent. Vasculature: Normal caliber of the abdominal aorta without evidence of aneurysm. Scattered atheroscle rotic calcifications. Normal noncontrast appearance of the portal venous system and inferior vena cav a. Abdominal wall: Normal. Bones: No suspicious osseous lesions. No acute fracture or dislocation. Intramedullary rods are parti ally visualized within the proximal femurs IMPRESSION: 1. The area of clinical interest in the right kidney is incompletely evaluated due to lack of IV cont rast. In comparison to the previous ultrasound, the identified abnormality may correspond to an area of partial calcification in the superior pole of the right kidney, that may represent a peripherally calcified cyst. Recommend further evaluation with CT or MRI renal protocol. 2. A few additional nonobstructive renal calculi on the right measuring up to 3 mm. 3. Simple appearing cyst in the superior pole of the left kidney measuring up to 1.4 cm. This document is electronically signed by Casi Perdomo MD., August 25 2018 02:01:49 PM ET
[2018-08-28 08:03] LABS: Albumin 2.7 g/dL (3.8-4.8)
[2018-08-30 15:34] LABS: Myeloperoxidase Antibody <1.0 AI (<1.0)
[2018-08-30 21:32] LABS: ANA Screen, IFA Negative (Negative)
== END 2018-08-25 11:30 | disposition home or self-care (01) | DRG 682 ==
LOC: ED 15:59 → 4A 18:42
PROVIDERS: ADMIT Internal Medicine; ATTEND Internal Medicine
DX: N17.0 Acute kidney failure with tubular necrosis (principal); I50.33 Acute on chronic diastolic (congestive) heart failure; G45.9 Transient cerebral ischemic attack, unspecified; E87.2 Acidosis; I16.1 Hypertensive emergency; D64.9 Anemia, unspecified; E78.5 Hyperlipidemia, unspecified; B19.20 Unspecified viral hepatitis C without hepatic coma; E11.40 Type 2 diabetes mellitus with diabetic neuropathy, unspecified; I25.118 Atherosclerotic heart disease of native coronary artery with other forms of angina pectoris; G40.909 Epilepsy, unspecified, not intractable, without status epilepticus; N28.89 Other specified disorders of kidney and ureter; I13.0 Hypertensive heart and chronic kidney disease with heart failure and stage 1 through stage 4 chronic kidney disease, or unspecified chronic kidney disease; M10.9 Gout, unspecified; E11.22 Type 2 diabetes mellitus with diabetic chronic kidney disease; N18.3 Chronic kidney disease, stage 3 (moderate); Z90.49 Acquired absence of other specified parts of digestive tract; Z95.1 Presence of aortocoronary bypass graft; Z90.710 Acquired absence of both cervix and uterus; Z88.6 Allergy status to analgesic agent; Z88.5 Allergy status to narcotic agent; Z79.899 Other long term (current) drug therapy; I69.354 Hemiplegia and hemiparesis following cerebral infarction affecting left non-dominant side; Z83.3 Family history of diabetes mellitus; Z82.49 Family history of ischemic heart disease and other diseases of the circulatory system
CPT/HCPCS: 36415; 70450; 70544; 70551; 71275; 74176; 76770; 78452; 80048; 80053; 80061; 80074; 81001; 82570; 82962; 83036; 83735; 83880; 83970; 84100; 84156; 84165; 84300; 84484; 85014; 85018; 85025; 85049; 85379; 85520; 85610; 85670; 85730; 86021; 86038; 86160; 93005; 93010; 93017; 93306; 93880; G0378; A9270-GY; A9502; J0360; J1170; J1644; J1815; J2270; J2405; J2785; J2997; J3475; Q9967

== ENCOUNTER 2019-04-23 16:40 | Observation (INO) | payer MEDICAID ==
--- NOTE | 2019-04-23 17:29 | Event Note ---
ED Screening Note ED Screening Note: pt presents with substernal CP radiates to the left shoulder describes it as a pressure 4 hours ago mild SOB PMHx CHF, CABG states she is on her medications never smoker This initial assessment/diagnostic orders/clinical plan/treatment(s) is/are subject to change based on patients health status, clinical progression and re- assessment by fellow clinical providers in the ED. Further treatment and workup at subsequent clinical providers discretion. Patient/guardian urged not to elope from the ED as their condition may be serious if not clinically assessed and managed. Initial orders include: CP protocol
[2019-04-23 17:58] LABS: INR 1.37 (0.87-1.13)
[2019-04-23 17:59] LABS: Partial Thromboplastin Time 30.1 Sec. (24.2-36.6)
--- NOTE | 2019-04-23 18:01 | XRay Report ---
CHEST 2 VIEWS INDICATION / CLINICAL INFORMATION: Chest pain starting 3 hours ago. COMPARISON: One view of the chest from 10/25/2014. FINDINGS: SUPPORT DEVICES: None. HEART / MEDIASTINUM: Sternotomy changes are noted with normal cardiac size. LUNGS / PLEURA: No significant pulmonary or pleural abnormality. No pneumothorax. ADDITIONAL FINDINGS: No significant additional findings. IMPRESSION: 1. No acute abnormality of the chest. Signer Name: Baldemar Newton MD Signed: 04/23/2019 5:57 PM Workstation Name: [id number]
[2019-04-23 18:14] LABS: Albumin 3.7 g/dL (3.9-5); Calcium 9.5 mg/dL (8.4-10.2)
[2019-04-23] MEDS ORDERED: METOPROLOL TARTRATE 5 MG/5 ML INJ IV ONE (18:17)
[2019-04-23] MEDS ORDERED: MORPHINE 4 MG/1 ML INJ IV ONE (18:18)
[2019-04-23 18:21] LABS: Hematocrit 28.9 % (30.3-42.9); Hemoglobin 9.4 gm/dl (10.1-14.3); Mean Corpuscular HGB Conc 33 % (30-34); Mean Corpuscular Volume 84 fl (79-97); Platelet Count 214 K/mm3 (140-440); Red Blood Count 3.46 M/mm3 (3.65-5.03); Red Cell Distribution Width 16.3 % (13.2-15.2)
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
[2019-04-23 18:58] LABS: Chol/HDL Ratio 4.27 %
--- NOTE | 2019-04-23 20:07 | Nuclear Medicine Report ---
NUCLEAR MEDICINE VENTILATION/PERFUSION LUNG SCAN INDICATION: Chest pain. Elevated d-dimer. TECHNIQUE: 31.0 mCi of Xe-133 were given by inhalation. 4.95 mCi of Tc-99m MAA were given by IV. COMPARISON: Chest radiograph dated 04/23/2019. FINDINGS: VENTILATION: No significant ventilation defects. PERFUSION: No significant perfusion defects. ADDITIONAL FINDINGS: None. IMPRESSION: 1. Low probability for pulmonary embolism. Signer Name: Baldemar Newton MD Signed: 04/23/2019 8:03 PM Workstation Name: [id number]
[2019-04-23 20:11] LABS: Anisocytosis 1+; Eosinophils % (Manual) 0 % (0.0-4.3); Platelet Estimate Consistent w Auto; Poikilocytosis 1+; Total Cells Counted 100
[2019-04-23] MEDS ORDERED: NON-FORMULARY EACH (Alprazolam 0.5 MG) PO PRN (22:47)
[2019-04-23] MEDS ORDERED: PROMETHAZINE 25 MG PO PRN (22:47)
[2019-04-23] MEDS ORDERED: HYDROcodone/ACETAMINOPHEN 5-325 MG TAB PO PRN (22:47)
[2019-04-23] MEDS ORDERED: ZOLPIDEM 5 MG TAB PO PRN (22:54)
[2019-04-23] MEDS ORDERED: ONDANSETRON 4 MG/2 ML INJ IV PRN (22:54)
[2019-04-23] MEDS ORDERED: ACETAMINOPHEN 325 MG TAB PO PRN (22:54)
[2019-04-23] MEDS ORDERED: METOCLOPRAMIDE 10 MG/2 ML INJ IV PRN (22:54)
[2019-04-23] MEDS ORDERED: oxyCODONE /ACETAMINOPHEN 5-325MG TAB PO PRN (22:54)
[2019-04-23] MEDS ORDERED: NON-FORMULARY EACH (Metoprolol Tartrate 25 MG) PO SCH (23:00)
[2019-04-23] MEDS ORDERED: SODIUM CHLORIDE 0.9% 1000 ML 1,000 ML IV SCH (23:00)
[2019-04-23] MEDS: METOPROLOL TARTRATE 25 MG TAB PO SCH (23:24)
[2019-04-23] MEDS: HYDROmorphone 1 MG/1 ML INJ IV PRN (23:25)
[2019-04-23] MEDS ORDERED: ALPRAZolam 0.5 MG TAB PO PRN (23:58)
[2019-04-24] MEDS ORDERED: METOCLOPRAMIDE 10 MG/2 ML INJ IV PRN (00:11)
[2019-04-24] MEDS ORDERED: PROMETHAZINE 25 MG TAB PO PRN (00:13)
[2019-04-24] MEDS ORDERED: ALBUTEROL 2.5 MG/3 ML NEBU IH PRN (00:22)
[2019-04-24] MEDS: HYDROmorphone 1 MG/1 ML INJ IV PRN ×2 (04:49→12:58)
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
[2019-04-24] MEDS: INSULIN LISPRO 100 UNIT/ML SUB-Q SCH ×2 (08:00→13:45)
[2019-04-24] MEDS ORDERED: NON-FORMULARY EACH (Gabapentin 300 MG) PO SCH (08:00)
[2019-04-24 09:13] LABS: Calcium 9.1 mg/dL (8.4-10.2)
[2019-04-24 09:16] LABS: Mean Corpuscular HGB Conc 28 % (30-34); Mean Corpuscular Volume 95 fl (79-97); Platelet Count 199 K/mm3 (140-440); Red Blood Count 3.37 M/mm3 (3.65-5.03); Red Cell Distribution Width 17.6 % (13.2-15.2)
[2019-04-24 09:17] LABS: Hematocrit 31.9 % (30.3-42.9)
[2019-04-24] MEDS: ALBUTEROL 2.5 MG/3 ML NEBU IH SCH ×2 (09:37→14:46)
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
[2019-04-24] MEDS ORDERED: PROVENTIL INHALATION SCH (10:00)
[2019-04-24] MEDS ORDERED: NON-FORMULARY EACH (Clopidogrel 75 MG) PO SCH (10:00)
[2019-04-24] MEDS ORDERED: CLOPIDOGREL 75 MG TAB PO SCH (10:00)
[2019-04-24] MEDS ORDERED: FAMOTIDINE 20 MG/2 ML INJ IV SCH ×2 (10:00)
[2019-04-24] MEDS ORDERED: NON-FORMULARY EACH (Atorvastatin 80 MG) PO SCH (10:00)
[2019-04-24] MEDS: METOPROLOL TARTRATE 25 MG TAB PO SCH (11:34)
[2019-04-24] MEDS: GABAPENTIN 300 MG CAP PO SCH ×2 (11:40→13:25)
[2019-04-24] MEDS ORDERED: SODIUM POLYSTYRENE 15 GM/60 ML ORAL LIQD PO ONE (11:49)
[2019-04-24] MEDS ORDERED: INSULIN REGULAR, HUMAN 100 UNITS/1 ML IV ONE (11:49)
[2019-04-24] MEDS ORDERED: DEXTROSE 50% IN WATER (25GM) 50 ML SYRINGE IV ONE (11:49)
[2019-04-24] MEDS ORDERED: SODIUM BICARB 8.4% 50 MEQ/50 ML SYRINGE IV ONE (11:49)
[2019-04-24] MEDS ORDERED: amLODIPine 10 MG TAB PO SCH (12:00)
[2019-04-24 13:49] VITALS: BP 193/89
--- NOTE | 2019-04-24 14:17 | Discharge Summary ---
Providers - Providers Date of Admission: 04/23/19 20:02 Date of discharge: 04/24/19 Attending physician: AVELINA BRAUN 04/23/19 22:53 Consult to Physician [CONS] Routine Comment: Consulting Provider: PAIGE MARCUM Physician Instructions: Reason For Exam: Chest pain Primary care physician: CRUMB PACKER Hospitalization Condition: Fair Pertinent studies: CXR VQ scan Hospital course: Discharge diagnosis: / Acute chest pain, likely from GERD / CHF (congestive heart failure), compensated / Hypertension, stable / IDDM (insulin dependent diabetes mellitus), Cont home Insulin and coverage. /CAD (coronary artery disease), Cont Plavix and statin / HLD (hyperlipidemia), COnt statins Disposition: - TO HOME OR SELFCARE Time spent for discharge: 34 minutes Core Measure Documentation - Palliative Care Palliative Care/ Comfort Measures: Not Applicable - Core Measures Any of the following diagnoses?: none Exam - Constitutional Vitals: Temp Pulse Resp BP Pulse Ox 97.5 F L 75 18 193/89 99 04/24/19 04:34 04/24/19 11:34 04/24/19 04:33 04/24/19 13:48 04/24/19 04:33 General appearance: Present: no acute distress, other (elderly) - EENT Eyes: Present: PERRL ENT: hearing intact, clear oral mucosa - Neck Neck: Present: supple, normal ROM - Respiratory Respiratory effort: normal Respiratory: bilateral: CTA - Cardiovascular Heart Sounds: Present: S1 & S2. Absent: rub, click - Extremities Extremities: pulses symmetrical, No edema Peripheral Pulses: within normal limits - Abdominal General gastrointestinal: Present: soft, non-tender, non-distended, normal bowel sounds - Integumentary Integumentary: Present: clear, warm, dry - Musculoskeletal Musculoskeletal: gait normal, strength equal bilaterally - Psychiatric Psychiatric: appropriate mood/affect, intact judgment & insight - Neurologic Neurologic: CNII-XII intact, moves all extremities Plan Activity: advance as tolerated Weight Bearing Status: Non-Weight Bearing Diet: diabetic, renal Follow up with: MARTIN MARTINO MD [Primary Care Provider] - 7 Days PALMER ZELAYA MD [Staff Physician] - 7 Days KLARISSA CASAS MD [Staff Physician] - 7 Days
[2019-04-24] MEDS ORDERED: ALBUTEROL 2.5 MG/3 ML NEBU IH SCH (20:00)
[2019-04-24] MEDS ORDERED: NON-FORMULARY EACH (Ambien 10 MG) PO SCH (22:00)
[2019-04-24] MEDS ORDERED: LANTUS 15 UNIT SUB-Q SCH (22:00)
[2019-04-24] MEDS ORDERED: INSULIN GLARGINE 100 UNITS/ML SUB-Q SCH (22:00)
== END 2019-04-24 18:37 | disposition home or self-care (01) ==
LOC: ED 16:40 → 4A 20:02
PROVIDERS: ADMIT Internal Medicine; ATTEND Internal Medicine
DX: R07.9 Chest pain, unspecified (principal); R47.81 Slurred speech; R79.89 Other specified abnormal findings of blood chemistry; E78.5 Hyperlipidemia, unspecified; I25.10 Atherosclerotic heart disease of native coronary artery without angina pectoris; E11.22 Type 2 diabetes mellitus with diabetic chronic kidney disease; I13.0 Hypertensive heart and chronic kidney disease with heart failure and stage 1 through stage 4 chronic kidney disease, or unspecified chronic kidney disease; N18.9 Chronic kidney disease, unspecified; I50.9 Heart failure, unspecified; Z86.73 Personal history of transient ischemic attack (TIA), and cerebral infarction without residual deficits; Z90.49 Acquired absence of other specified parts of digestive tract
CPT/HCPCS: 36415; 71046; 78582; 80053; 80061; 82962; 83036; 83880; 84132; 84484; 85007; 85025; 85379; 85610; 85730; 93005; 93010; 93306; 94640; 96372; 96374; 96375; 96376; 99284; A9270; A9540; A9558; G0378; J1170; J2270; J7030; J1815

== ENCOUNTER 2020-02-04 19:13 | Emergency (ER) | payer MEDICAID ==
[2020-02-04] MEDS ORDERED: ASPIRIN 325 MG TAB PO ONE (19:46)
[2020-02-04 20:01] LABS: Basophils % (Auto) 0.3 % (0.0-1.8); Eosinophils # (Auto) 0.2 K/mm3 (0.0-0.4); Eosinophils % (Auto) 3.3 % (0.0-4.3); Hematocrit 30.1 % (30.3-42.9); Hemoglobin 9.4 gm/dl (10.1-14.3); Lymphocytes # (Auto) 2.5 K/mm3 (1.2-5.4); Lymphocytes % (Auto) 45.4 % (13.4-35.0); Mean Corpuscular HGB Conc 31 % (30-34); Mean Corpuscular Volume 85 fl (79-97); Monocytes # (Auto) 0.4 K/mm3 (0.0-0.8); Monocytes % (Auto) 6.9 % (0.0-7.3); Platelet Count 170 K/mm3 (140-440); Red Blood Count 3.55 M/mm3 (3.65-5.03); Red Cell Distribution Width 18.4 % (13.2-15.2)
[2020-02-04 20:19] LABS: Calcium 8.8 mg/dL (8.4-10.2)
--- NOTE | 2020-02-04 20:21 | XRay Report ---
CHEST 2 VIEWS INDICATION / CLINICAL INFORMATION: Chest Pain. COMPARISON: 04/03/19 FINDINGS: SUPPORT DEVICES: None. HEART / MEDIASTINUM: Stable. Median sternotomy wires are unchanged. LUNGS / PLEURA: No significant pulmonary or pleural abnormality. No pneumothorax. ADDITIONAL FINDINGS: No significant additional findings. IMPRESSION: 1. No acute findings. No change. Signer Name: Genoveva Porter MD Signed: 02/04/2020 8:17 PM Workstation Name: [id number]
[2020-02-04 20:34] LABS: Chol/HDL Ratio 4.04 %
[2020-02-04] MEDS ORDERED: NITROGLYCERIN 0.4 MG TAB SUBL SL PRN (20:37)
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
[2020-02-04] MEDS ORDERED: INSULIN REGULAR, HUMAN 100 UNIT/ML 3ML VIAL IV ONE (20:42)
[2020-02-04] MEDS ORDERED: DEXTROSE 50% IN WATER (25GM) 50 ML SYRINGE IV ONE (20:42)
[2020-02-04] MEDS ORDERED: CALCIUM GLUCONATE 1,000 MG in SODIUM CHLORIDE 0.9% 100 ML IV ONE (20:43)
[2020-02-04] MEDS ORDERED: SODIUM POLYSTYRENE 15 GM/60 ML ORAL LIQD PO ONE (20:43)
[2020-02-04] MEDS ORDERED: ALBUTEROL 2.5 MG/3 ML NEBU IH ONE (20:43)
[2020-02-04] MEDS ORDERED: INSULIN REGULAR, HUMAN 100 UNITS/1 ML ONE (21:00)
[2020-02-04] MEDS ORDERED: ONDANSETRON 4 MG/2 ML INJ IV ONE (21:31)
[2020-02-04] MEDS ORDERED: ONDANSETRON 4 MG/2 ML INJ ONE (21:32)
[2020-02-04] MEDS ORDERED: MORPHINE 2 MG/1 ML INJ IV ONE ×2 (21:52→21:53)
[2020-02-04] MEDS ORDERED: MORPHINE 4 MG/1 ML INJ ONE (21:54)
[2020-02-04] MEDS ORDERED: HEPARIN 10,000 UNITS/10 ML VIAL IV ONE (22:13)
[2020-02-04] MEDS ORDERED: DEXTROSE 50% IN WATER (25GM) 50 ML SYRINGE IV PRN (22:18)
[2020-02-04] MEDS ORDERED: ACETAMINOPHEN 325 MG TAB PO PRN (22:18)
[2020-02-04] MEDS ORDERED: diphenhydrAMINE 50 MG/ML VIAL IV PRN (22:25)
[2020-02-04] MEDS ORDERED: MORPHINE 2 MG/1 ML INJ IV PRN (22:28)
--- NOTE | 2020-02-04 22:31 | History and Physical Report ---
History of Present Illness Date of examination: 02/04/20 Date of admission: 02/04/20 21:51 Chief complaint: Chest Pain History of present illness: 64-year-old white female with known history of coronary artery disease status post CABG about 5 years ago, chronic kidney disease and diabetes mellitus presenting to the emergency room today complaining of chest pain. Pain is said to be pressure-like in nature and is in the midsternal area radiating towards the left shoulder. She had associated nausea but no vomiting, denies any diaphoresis, no fever or chills, denies any headache or dizziness. Patient states that she does not have any tufter hand at the moment as she just recently moved from [place] back to [place] about a year ago. Work-up in the emergency room today reveals slightly elevated troponin of 0.08, hyperkalemia of 5.7. Blood pressure was also quite elevated upon arrival and was given IV labetalol with improvement. Past History Past Medical History: diabetes, heart failure, hypertension, hyperlipidemia, seizures, stroke Past Surgical History: appendectomy, cholecystectomy, CABG, PTCA Social history: no significant social history Family history: diabetes, hypertension Medications and Allergies Allergies Allergy/AdvReac Type Severity Reaction Status Date / Time aspirin Allergy Vomiting Verified 02/04/20 19:47 ketorolac tromethamine Allergy Rash Verified 10/25/14 14:28 [From Toradol] tramadol Allergy Rash Verified 02/04/20 21:18 Home Medications Medication Instructions Recorded Confirmed Last Taken Type HYDROcodone/APAP 5-325 [[place] 1 each PO Q6HR PRN #12 tablet 10/26/14 Unknown Rx 5-325 mg TAB] ALPRAZolam 0.5 mg 08/23/18 Unknown History Ambien 10 mg 08/23/18 Unknown History Diclofenac EC 75 mg 08/23/18 Unknown History Gabapentin 300 mg 08/23/18 Unknown History Humalog 08/23/18 Unknown History Lantus 08/23/18 Unknown History Lyrica 75 mg 08/23/18 Unknown History Metformin HCl 1,000 mg 08/23/18 Unknown History Metoprolol Tartrate 25 mg 08/23/18 Unknown History Promethazine 25 mg 08/23/18 Unknown History Proventil Hfa 90 INHALATION 08/23/18 Unknown History Tylenol /Codeine # 3 tab 3 PRN 08/23/18 Unknown History Atorvastatin 80 mg PO DAILY #60 08/25/18 Unknown Rx Clopidogrel 75 mg PO DAILY #30 08/25/18 Unknown Rx Active Meds: Active Medications Acetaminophen (Tylenol) 650 mg PO Q6H PRN PRN Reason: Pain, Mild (1-3) Aspirin (Ecotrin) 325 mg PO QDAY JESSICA Dextrose (D50w (25gm) Syringe) 50 ml IV Q30MIN PRN; Protocol PRN Reason: Hypoglycemia Diphenhydramine HCl (Benadryl) 25 mg IV Q6H PRN PRN Reason: Itching Heparin Sodium/Sodium Chloride (Heparin/ 0.45% Nacl-25,000 Unit/500 Ml) 25,000 unit in 500 mls @ 20 mls/hr IV TITRATE JESSICA; Protocol Insulin Human Lispro (Humalog) 0 unit SUB-Q ACHS JESSICA; Protocol Morphine Sulfate (Morphine) 2 mg IV Q5MIN PRN PRN Reason: Chest Pain Nitroglycerin (Nitrostat) 0.4 mg SL .Q5MIN PRN PRN Reason: Chest Pain Last Admin: 02/04/20 21:11 Dose: 0.4 mg Documented by: Sodium Chloride (Sodium Chloride Flush Syringe 10 Ml) 10 ml IV PRN PRN PRN Reason: LINE FLUSH Review of Systems Constitutional: no fever, no chills Ears, nose, mouth and throat: no nasal congestion, no sore throat Cardiovascular: chest pain, no palpitations Respiratory: no cough, no shortness of breath Gastrointestinal: nausea, no abdominal pain, no vomiting, no diarrhea Genitourinary Female: no pelvic pain, no flank pain, no dysuria, no hematuria Musculoskeletal: no neck pain, no low back pain Integumentary: no rash, no pruritis Neurological: no headaches, no confusion Psychiatric: no anxiety, no depression Exam - Constitutional Vitals: Temp Pulse Resp BP Pulse Ox 98.0 F 119 H 12 188/84 100 02/04/20 20:30 02/04/20 22:01 02/04/20 22:00 02/04/20 22:01 02/04/20 22:00 General appearance: Present: no acute distress, well-nourished - EENT Eyes: Present: PERRL, EOM intact. Absent: scleral icterus ENT: hearing intact, clear oral mucosa, dentition normal - Neck Neck: Present: supple, normal ROM - Respiratory Respiratory effort: normal Respiratory: bilateral: CTA - Cardiovascular Rhythm: regular Heart Sounds: Present: S1 & S2. Absent: gallop, systolic murmur, diastolic murmur, rub - Extremities Extremities: no ischemia, pulses intact, pulses symmetrical, No edema, Full ROM Peripheral Pulses: within normal limits - Abdominal General gastrointestinal: Present: soft, non-tender, non-distended, normal bowel sounds. Absent: mass - Integumentary Integumentary: Present: clear, warm, dry - Musculoskeletal Musculoskeletal: strength equal bilaterally - Psychiatric Psychiatric: appropriate mood/affect, intact judgment & insight, memory intact, cooperative - Neurologic Neurologic: CNII-XII intact, focal deficits, moves all extremities HEART Score - HEART Score Troponin: Troponin T 0.080 ng/mL (0.00-0.029) H 02/04/20 19:47 Results - Labs CBC & Chem 7: 02/04/20 19:47 02/04/20 19:47 Labs: Abnormal lab results 02/04/20 02/04/20 Range/Units 19:47 19:47 RBC 3.55 L (3.65-5.03) M/mm3 Hgb 9.4 L (10.1-14.3) gm/dl Hct 30.1 L (30.3-42.9) % MCH 27 L (28-32) pg RDW 18.4 H (13.2-15.2) % Lymph % (Auto) 45.4 H (13.4-35.0) % Potassium 5.7 H (3.6-5.0) mmol/L Chloride 110.2 H (98-107) mmol/L Carbon Dioxide 15 L (22-30) mmol/L BUN 30 H (7-17) mg/dL Creatinine 3.2 H (0.6-1.2) mg/dL Glucose 187 H (65-100) mg/dL Troponin T 0.080 H (0.00-0.029) ng/mL Triglycerides 178 H (2-149) mg/dL Assessment and Plan - Patient Problems (1) Chest pain Status: Acute Plan to address problem: Patient admitted and placed on telemetry. We will trend cardiac enzymes. Patient placed on daily aspirin, sublingual nitroglycerin and IV morphine as needed for chest pain. Consult has been placed to cardiology for further evaluation and recommendation. (2) Hyperkalemia Status: Acute Plan to address problem: Patient has received insulin and glucose, calcium gluconate and Kayexalate in the emergency room. We will monitor potassium levels. (3) Hypertensive emergency Status: Acute Plan to address problem: Patient has received IV labetalol with improvement in blood pressure. We monitor vital signs closely. We will also resume routine home medications once reconciled. (4) NSTEMI (non-ST elevated myocardial infarction) Status: Acute Plan to address problem: Patient has been started on heparin drip. We will continue to monitor troponin levels We will await further recommendation from cardiology. (5) CKD (chronic kidney disease) Status: Acute Qualifiers: Chronic kidney disease stage: unspecified stage Qualified Code(s): N18.9 - Chronic kidney disease, unspecified (6) Seizure disorder Status: Acute Plan to address problem: Will place on seizure precautions and resume routine home medications. (7) Diabetes mellitus, type 2 Status: Chronic Plan to address problem: We will monitor Accu-Cheks closely. (8) DVT prophylaxis Status: Acute Plan to address problem: Patient currently on anticoagulation. (9) Full code status Status: Acute
[2020-02-04 22:54] VITALS: BP 176/77
[2020-02-04] MEDS ORDERED: HEPARIN/ 0.45% NACL DRIP 25,000 UNIT/500 ML BAG IV SCH (23:00)
[2020-02-05] MEDS ORDERED: INSULIN LISPRO 100 UNIT/ML VIAL 3 mL SUB-Q SCH (07:30)
[2020-02-05] MEDS ORDERED: ASPIRIN EC 325 MG TAB PO SCH (10:00)
== END 2020-02-04 22:45 | disposition left against medical advice (07) ==
LOC: ED 19:13 → UNDOADMOB 21:51 → 4A 21:51
DX: I21.4 Non-ST elevation (NSTEMI) myocardial infarction (principal); I16.1 Hypertensive emergency; N28.9 Disorder of kidney and ureter, unspecified; E87.5 Hyperkalemia; R07.9 Chest pain, unspecified; I50.9 Heart failure, unspecified; E11.9 Type 2 diabetes mellitus without complications; R56.9 Unspecified convulsions; M19.91 Primary osteoarthritis, unspecified site; Z90.710 Acquired absence of both cervix and uterus; Z90.49 Acquired absence of other specified parts of digestive tract; Z98.890 Other specified postprocedural states; Z79.84 Long term (current) use of oral hypoglycemic drugs; Z79.899 Other long term (current) drug therapy; Z88.8 Allergy status to other drugs, medicaments and biological substances
CPT/HCPCS: 36415; 71046; 80048; 80061; 84484; 85025; 93005; 94640; 96365; 96375; 99291; J0610; J2270; J2405; 94644; J1815